=== PATIENT | female | born 2000 | race Two or more races ===

== ENCOUNTER 2025-08-23 22:59 | Inpatient (IN) | payer MEDICAID, OTHER ==
[~2025-08-23] VITALS: Ht 149.9 cm; Wt 105.6 kg
[2025-08-23 23:54] VITALS: PULSE 98; RESP 16; O2SAT 96
[2025-08-24] VITALS (12 sets, daily range): BP systolic 106–115; BP diastolic 68–83; PULSE 89–98; RESP 17–19; TEMP 97.6–98.5; O2SAT 90–100
[2025-08-24 00:14] LABS: Hematocrit 41.0 % (36.0-46.0); Hemoglobin 13.7 g/dL (12.2-16.2); Mean Corpuscular Hemoglobin 29.9 pg (28.0-32.0); Mean Corpuscular Volume 89.3 fL (80.0-100.0); Nucleated Red Blood Cells % 0.2 %
[2025-08-24] MEDS: IOHEXOL 300 MG/ML 100ML BOTTLE IJ ONE (00:21)
[2025-08-24 00:33] LABS: Alanine Aminotransferase 18 U/L (7-40); Albumin 4.3 g/dL (3.2-4.8); Alkaline Phosphatase 75 U/L (46-116); Anion Gap 11 (5-15); BUN/Creatinine Ratio 10.8 (10.0-20.0); Bilirubin, Total 0.3 mg/dL (0.2-1.0); Calcium 9.3 mg/dL (8.7-10.4); Carbon Dioxide 25 mmol/L (20-31); Chloride 104 mmol/L (98-107); Glucose 86 mg/dL (74-106); Lipase 30 U/L (12-53); Potassium 4.3 mmol/L (3.5-5.1); Sodium 140 mmol/L (136-145); Total Protein 7.8 g/dL (5.7-8.2)
[2025-08-24 00:34] LABS: Blood Urea Nitrogen 8 mg/dL (9-23)
[2025-08-24] MEDS: ONDANSETRON HCL 4 MG/2 ML VIAL IV ONE (01:04)
[2025-08-24] MEDS: KETOROLAC TROMETH 30 MG/ML 1ML VIAL IM ONE (01:05)
[2025-08-24] MEDS: SODIUM CHLORIDE 0.9% 1,000 ML IV ONE ×3 (01:05→10:49)
--- NOTE | 2025-08-24 01:15 | DVH ---
Exam: CT CT AB PEL WITH IV CON ONLY History: abd pain Comparison Study: None Technique: Multidetector spiral CT of the abdomen was performed from lung bases to pubic symphysis. I maging was performed with IV contrast. Axial, coronal and sagittal multiplanar reformats were obtaine d from the axial data set by the technologist. Radiation Dose : 1. Abdomen/Pelvis: CTDIvol 26.01 mGy, DLP 1482.8 mGy*cm. Findings: Evaluation of solid organs is limited due to lack of intravenous contrast use. Lower Chest: No acute findings. Liver: Diffuse hypoenhancement relative to the spleen. Gallbladder and Biliary Tree: Cholecystectomy change. Pancreas: Normal. Spleen: Normal. Adrenal Glands: Unremarkable. Kidneys/Ureters: No acute abnormality. Nonobstructing 2 mm stone in the right inferior collecting sys tem. Bladder: Grossly unremarkable for degree of distention. Pelvic Organs: Unremarkable Bowel: Normal caliber without wall thickening. No evidence of appendicitis. Vasculature: Unremarkable. Lymphadenopathy: No obvious adenopathy. Peritoneum: No ascites, free air, or fluid collection. Abdominal Wall: Fat containing supraumbilical and umbilical hernias. Mild stranding of internal augusto nts within the supraumbilical hernia. Musculoskeletal: No acute findings. Transitional lumbosacral anatomy. IMPRESSION: 1. Suggestion of mild fat incarceration within a supraumbilical hernia, correlate with symptoms and p hysical exam. 2. No other acute abdominopelvic abnormality. Nonobstructing right nephrolith. 3. Probable hepatic steatosis. Radiation optimization: All CT scans at this facility use at least one of these dose optimization saturnino hniques: automated exposure control mA and/or kV adjustment per patient size (includes targeted exam s where dose is matched to clinical indication) or iterative reconstruction.
--- NOTE | 2025-08-24 01:47 | ED.PDOC ---
GI ASSESSMENT HPI Comments Patient states she has been dealing with nausea and vomiting for the last 3-4 months. He states over the last three days her vomiting has become worse. States she has not been able to tolerate any food. She has been trying p.o. Zofran but she vomits. Says she has a history of abdominal wall hernia. States it was repaired in May but then the repair failed and since then she has been having these intermittent/recurrent episodes of cyclical vomiting. Patient reports 08/06 pain. She was told by her surgeon's office that she can not be seen until end of August. She was advised to come into the emergency department where Dr. Santos has privileges. She decided to come in to this emergency department. Chief Complaint: Nausea/Vomiting Time Seen by MD: 23:28 Reviewed Notes: Nurses Notes Allergies: Coded Allergies: Amoxicillin (Verified Allergy, Unknown, 08/23/25) Azithromycin (Verified Allergy, Unknown, 08/23/25) Dexamethasone (Verified Allergy, Unknown, 08/23/25) Diphenhydramine (Verified Allergy, Unknown, 08/23/25) Doxycycline (Verified Allergy, Unknown, 08/23/25) Gabapentin (Verified Allergy, Unknown, 08/23/25) Morphine (Verified Allergy, Unknown, 08/23/25) Oxycodone (Verified Allergy, Unknown, 08/23/25) Prochlorperazine (Verified Allergy, Unknown, 08/23/25) Information Source: Patient Mode of Arrival: Wheelchair Past Medical History Past Medical History (Other): Autism Surgical History (Other): Abdominal wall hernia Constitutional: denies: chills, diaphoresis, fatigue, fever, malaise, sweats, weakness, others EENTM: denies: blurred vision, double vision, ear bleeding, ear discharge, ear drainage, ear pain, ear ringing, eye pain, eye redness, hearing loss, mouth pain, mouth swelling, nasal discharge, nose bleeding, nose congestion, nose pain, photophobia, tearing, throat pain, throat swelling, voice changes, others Respiratory: denies: cough, hemoptysis, orthopnea, SOB at rest, shortness of breath, SOB with excertion, stridor, wheezing, others Cardiovascular: denies: chest pain, dizzy spells, diaphoresis, Dyspnea on exertion, edema, irregular heart beat, left arm pain, lightheadedness, palpitations, PND, syncope, others Gastrointestinal: reports: abdominal pain, nausea, vomiting; denies: abdomen distended, blood streaked bowels, constipated, diarrhea, dysphagia, difficulty swallowing, hematemesis, melena, poor appetite, poor fluid intake, rectal bleeding, rectal pain, others Genitourinary: denies: abnormal vagina bleeding, burning, dyspareunia, dysuria, flank pain, frequency, hematuria, incontinence, pain, , vagina discharge, urgency, others Neurological: denies: dizziness, fainting, headache, left sided numbness, left sided weakness, numbness, paresthesia, pre-existing deficit, right sided numbness, right sided weakness, seizure, speech problems, tingling, tremors, weakness, others Musculoskeletal: denies: back pain, gout, joint pain, joint swelling, muscle pain, muscle stiffness, neck pain, others Integumetry: denies: bruises, change in color, change in hair/nails, dryness, laceration, lesions, lumps, rash, wounds, others Physical Exam General Appearance: Moderate Distress, Normal HEENT: Normal ENT Inspection, Pharynx Normal, TMs Normal Neck: Full Range of Motion, Non-Tender, Normal, Normal Inspection Respiratory: Chest Non-Tender, Lungs Clear, No Accessory Muscle Use, No Respiratory Distress, Normal Breath Sounds Cardiovascular: No Edema, No JVD, No Murmur, No Gallop, Normal Peripheral Pulses, Regular Rate/Rhythm Breast Exam: Deferred Gastrointestinal: Diffuse (Diffuse upper abdomen tenderness), Distended, No Organomegaly, Normal Bowel Sounds, Soft Genitalia: Deferred Pelvic: Deferred Rectal: Deferred Extremities: No calf tenderness, Normal capillary refill, Normal inspection, Normal range of motion, Non-tender, No pedal edema Musculoskeletal : Apperance: Normal Neurologic: Alert, corsets salesperson II-XII nml as Tested, No Motor Deficits, Normal Affect, Normal Mood, No Sensory Deficits Cerebellar Function: Normal Reflexes: Normal Skin: Dry, Normal Color, Warm Lymphatic: No Adenopathy Was a procedure done? Was a procedure done?: No GI differential Dx Differential Diagnosis: Appendicitis, Gastritis/PUD, Gastroenteritis, Hernia, Hepatitis, Inflammatory BD X-Ray, Labs, Meds, VS Vital Signs Date Time Temp Pulse Resp B/P (MAP) Pulse Ox O2 Delivery O2 Flow Rate FiO2 08/23/25 23:54 98 16 96 Room Air* 0 21 08/23/25 23:53 98.2 98 16 135/89 (104) 96 98.2 08/23/25 23:02 98.8 103 18 120/91 97 98.8 Lab Test 08/24/25 00:01 Range/Units White Blood Count 8.0 4.4-10.8 10^3/uL Red Blood Count 4.59 4.0-5.20 10^6/uL Hemoglobin 13.7 12.2-16.2 g/dL Hematocrit 41.0 36.0-46.0 % Mean Corpuscular Volume 89.3 80.0-100.0 fL Mean Corpuscular Hemoglobin 29.9 28.0-32.0 pg Mean Corpuscular Hemoglobin Concent 33.5 32.0-36.0 g/dL Red Cell Distribution Width 14.1 11.8-14.3 % Platelet Count 266 140-450 10^3/uL Mean Platelet Volume 8.6 6.9-10.8 fL Neutrophils (%) (Auto) 61.0 37.0-80.0 % Lymphocytes (%) (Auto) 30.9 10.0-50.0 % Monocytes (%) (Auto) 6.2 0.0-12.0 % Eosinophils (%) (Auto) 1.4 0.0-7.0 % Basophils (%) (Auto) 0.5 0.0-2.0 % Neutrophils # (Auto) 4.9 1.6-8.6 10 ^3/uL Lymphocytes # (Auto) 2.5 0.4-5.4 10 ^3/uL Monocytes # (Auto) 0.5 0-1.3 10 ^3/uL Eosinophils # (Auto) 0.1 0-0.8 10 ^3/uL Basophils # (Auto) 0 0-0.2 10 ^3/uL Nucleated Red Blood Cells 0.2 % Sodium Level 140 136-145 mmol/L Potassium Level 4.3 3.5-5.1 mmol/L Chloride Level 104 98-107 mmol/L Carbon Dioxide Level 25 20-31 mmol/L Anion Gap 11 5-15 Blood Urea Nitrogen 8 L 9-23 mg/dL Creatinine 0.74 0.550-1.02 mg/dL Glomerular Filtration Rate Calc 114 >90 mL/min BUN/Creatinine Ratio 10.8 10.0-20.0 Serum Glucose 86 74-106 mg/dL Calcium Level 9.3 8.7-10.4 mg/dL Total Bilirubin 0.3 0.2-1.0 mg/dL Aspartate Amino Transferase (AST) 16 13-40 U/L Alanine Aminotransferase (ALT) 18 7-40 U/L Alkaline Phosphatase 75 46-116 U/L Total Protein 7.8 5.7-8.2 g/dL Albumin 4.3 3.2-4.8 g/dL Lipase 30 12-53 U/L Current Medications Medications (Trade) Dose Ordered Sig/Michele Route Start Time Stop Time Status Last Admin Ketorolac Tromethamine (Toradol Injection) 30 mg ONCE ONCE IM 08/24/25 00:00 08/24/25 00:01 DC 08/24/25 01:05 Sodium Chloride 1,000 ml @ 1,000 mls/hr Q1H ONCE IV 08/24/25 00:00 08/24/25 00:59 DC 08/24/25 01:05 Ondansetron HCl (Zofran) 4 mg ONCE ONCE IV 08/24/25 01:00 08/24/25 01:01 DC 08/24/25 01:04 X-Ray, Labs, Meds, VS Comment Patient will be admitted for intractable vomiting and abdominal pain Recommend general surgery consult in the morning Patient be given IV fluids and IV Zofran Patient was given 4 mg IV Zofran which had little effect, patient is still continued to vomit. Time of 1ST Reevaluation: 01:47 Reevaluation 1ST: Unchanged Patient Education/Counseling: Diagnosis, Treatment Family Education/Counseling: Diagnosis, Treatment SEPSIS Sepsis Screen Date sepsis recognized/suspect: Aug 23, 2025 Time Sepsis recognized/suspect: 2304 Recent Procedure: No On Antibiotic Therapy: No Respiratory Rate >20: No Heart Rate >90: No Temp<36 C (96.8 F) or >38.3 C: No SBP <90 or MAP <65 mmHG: No New Acute Mental Status Change: No Is the patient on CPAP, BIPAP,: No Physician Orders Urinalysis (08/23/25 23:50) Ct Ab Pel With Iv Con Only (08/23/25 23:50) Vital Signs Date Time Temp Pulse Resp B/P (MAP) Pulse Ox O2 Delivery O2 Flow Rate FiO2 08/23/25 23:54 98 16 96 Room Air* 0 21 08/23/25 23:53 98.2 98 16 135/89 (104) 96 98.2 08/23/25 23:02 98.8 103 18 120/91 97 98.8 Laboratory Tests Test 08/24/25 00:01 White Blood Count 8.0 10^3/uL (4.4-10.8) Medications Medications Dose Ordered Sig/Michele Route Start Time Stop Time Status Last Admin Dose Admin Ketorolac Tromethamine 30 mg ONCE ONCE IM 08/24/25 00:00 08/24/25 00:01 DC 08/24/25 01:05 Ondansetron HCl 4 mg ONCE ONCE IV 08/24/25 01:00 08/24/25 01:01 DC 08/24/25 01:04 Sodium Chloride 1,000 ml @ 1,000 mls/hr Q1H ONCE IV 08/24/25 00:00 08/24/25 00:59 DC 08/24/25 01:05 Departure 1 Departure Time of Disposition: 01:46 Impression: Primary Impression: Intractable vomiting Additional Impression: Abdominal wall hernia Disposition: ADMITTED INPATIENT Condition: Stable Discharged With: Self Critical Care Note Critical Care Time?: No Stability Stability form required: No Heart Score Heart Score: Heart Score Response (Comments) Value History N/A 0 EKG N/A 0 Age N/A 0 Risk Factors N/A 0 Troponin N/A 0 Total 0 ROMINA CURRY Aug 24, 2025 01:47
[2025-08-24] MEDS ORDERED: HYDROmorphone HCL 2 MG/ML VL/or syr IV PRN (02:30)
[2025-08-24] MEDS ORDERED: LORazepam 2MG/ML-1ML VIAL IV PRN (02:30)
[2025-08-24] MEDS ORDERED: KETOROLAC TROMETH 30 MG/ML 1ML VIAL IV PRN (02:30)
[2025-08-24 03:03] LABS: Urine Protein, UAD TRACE (Negative)
--- NOTE | 2025-08-24 03:04 | DVHHPRES ---
History of Present Illness Resident Creating Document: LB GARCIA RESIDENT History of Present Illness This is a 24-year-old female with a past medical history of Ignacia-Danlos, anxiety, depression, autism, asthma, recurrent abdominal hernias, fibromyalgia, scoliosis who was brought to the emergency room by her mother for nausea, vomiting, abdominal and flank pain. According to the patient she has been throwing up since May on and off but since the last 4 days 08/20/2025, the episodes of vomiting have increased and she is unable to tolerate any liquid or solids. Patient reports that she had a incarcerated, strangulated supraumbilical hernia repair in [place] on November. She also complains of coughing constantly which causes the abdominal pain. She rates the pain as 10/10 in intensity, burning and stabbing type, increased with movement, standing. She denies any shortness of breath, diarrhea, chest pain, recent sick contacts. She also complains of right-sided loin to groin pain, 10/10 in intensity, stabbing in nature associated with nausea and vomiting. Patient had gone to [place] and was told that she has renal stone in the lower pole measuring 3 mm and was given pain medication for it. On admission patient was likely tachycardic pulse 103, temperature 98.5, BP 115/83, SpO2 100% in room air. CT abdomen and pelvis shows suggestion of mild fat incarceration within a supraumbilical hernia and nonobstructing 2 mm stone in the right intrarenal collecting system. We are admitting the patient for further workup and management. Past medical history: As stated above, patient also states she takes control pills for excessive bleeding since the age of [age] years old Past surgical history: For hernia repairs of the abdomen, cholecystectomy, appendectomy, perforated eardrum Family history: Reviewed and noncontributory to the management of this case Medications at home: control pills Allergies: None PCP: Dr. Ngo from [facility] Code status: Full code Review of Systems Constitutional: No: Fever, Chills, Sweats, Weakness, Malaise, Other Eyes: No: Pain, Vision change, Conjunctivae inflammation, Eyelid inflammation, Other, Redness ENT: No: Ear pain, Ear discharge, Nose pain, Nose discharge, Nose congestion, Mouth pain, Mouth swelling, Throat pain, Throat swelling, Other Respiratory: Cough Cardiovascular: No: Chest Pain, Palpitations, Orthopnea, Paroxysmal Noc. Dyspnea, Edema, Lt Headedness, Other Gastrointestinal: Abdominal Pain Genitourinary: No Dysuria, No Frequency, No Incontinence, No Hematuria, No Retention, No Other Musculoskeletal: No: other, neck pain, shoulder pain, arm pain, back pain, hand pain, leg pain, foot pain Skin: No: Rash, Lesions, Jaundice, Bruising, Other Neurological: No: Weakness, Numbness, Incoordination, Change in speech, Confusion, Seizures, Other Allergies: Coded Allergies: Amoxicillin (Verified Allergy, Unknown, 08/23/25) Azithromycin (Verified Allergy, Unknown, 08/23/25) Dexamethasone (Verified Allergy, Unknown, 08/23/25) Diphenhydramine (Verified Allergy, Unknown, 08/23/25) Doxycycline (Verified Allergy, Unknown, 08/23/25) Gabapentin (Verified Allergy, Unknown, 08/23/25) Morphine (Verified Allergy, Unknown, 08/23/25) Oxycodone (Verified Allergy, Unknown, 08/23/25) Prochlorperazine (Verified Allergy, Unknown, 08/23/25) Medications Current Medications Medications Dose Ordered Sig/Michele Route Start Time Stop Time Status Last Admin Dose Admin Ondansetron HCl 4 mg Q4HP PRN IV 08/24/25 02:30 Enoxaparin Sodium 40 mg DAILY SC 08/24/25 02:30 UNV Tamsulosin HCl 0.4 mg QPM PO 08/24/25 18:00 Ketorolac Tromethamine 30 mg Q6HPRN PRN IV 08/24/25 02:30 08/29/25 02:29 Hydromorphone HCl 0.5 mg Q4HPRN PRN IV 08/24/25 02:30 UNV Lorazepam 0.5 mg Q12HP PRN IV 08/24/25 02:30 UNV Ceftriaxone Sodium 50 ml @ 100 mls/hr DAILY@09 IV 08/24/25 09:00 UNV Albuterol 2.5 mg Q6HPRN PRN NEB 08/24/25 02:30 UNV Exam Vital Signs Vital Signs Date Time Temp Pulse Resp B/P (MAP) Pulse Ox O2 Delivery O2 Flow Rate FiO2 08/24/25 01:47 98.5 94 16 115/83 (94) 100 98.5 08/23/25 23:54 Room Air* 0 21 Exam Pt is lying on bed General Appearance: Alert, Oriented X3, Cooperative, mildly acute distress HEENT: Atraumatic, Mucous membranes moist/pink Respiratory: Clear to auscultation, Normal air movement, No added sounds Cardiovascular: Regular rate, Normal S1, Normal S2, No murmurs Abdominal: Active bowel sounds, Soft, no distention, presence of palpable supraumbilical hernia on cough Extremities: No edema, Normal pulses, No tenderness/swelling Skin: No Significant rash, except past surgical scars Neuro: Normal speech, sensorimotor deficits none Psych/Mental Status: Mental status NL, Mood NL Nurse was there as printing press machinist during examination Labs/Xrays Labs Test 08/24/25 02:28 08/24/25 00:01 Range/Units White Blood Count 8.0 4.4-10.8 10^3/uL Red Blood Count 4.59 4.0-5.20 10^6/uL Hemoglobin 13.7 12.2-16.2 g/dL Hematocrit 41.0 36.0-46.0 % Mean Corpuscular Volume 89.3 80.0-100.0 fL Mean Corpuscular Hemoglobin 29.9 28.0-32.0 pg Mean Corpuscular Hemoglobin Concent 33.5 32.0-36.0 g/dL Red Cell Distribution Width 14.1 11.8-14.3 % Platelet Count 266 140-450 10^3/uL Mean Platelet Volume 8.6 6.9-10.8 fL Neutrophils (%) (Auto) 61.0 37.0-80.0 % Lymphocytes (%) (Auto) 30.9 10.0-50.0 % Monocytes (%) (Auto) 6.2 0.0-12.0 % Eosinophils (%) (Auto) 1.4 0.0-7.0 % Basophils (%) (Auto) 0.5 0.0-2.0 % Neutrophils # (Auto) 4.9 1.6-8.6 10 ^3/uL Lymphocytes # (Auto) 2.5 0.4-5.4 10 ^3/uL Monocytes # (Auto) 0.5 0-1.3 10 ^3/uL Eosinophils # (Auto) 0.1 0-0.8 10 ^3/uL Basophils # (Auto) 0 0-0.2 10 ^3/uL Nucleated Red Blood Cells 0.2 % Sodium Level 140 136-145 mmol/L Potassium Level 4.3 3.5-5.1 mmol/L Chloride Level 104 98-107 mmol/L Carbon Dioxide Level 25 20-31 mmol/L Anion Gap 11 5-15 Blood Urea Nitrogen 8 L 9-23 mg/dL Creatinine 0.74 0.550-1.02 mg/dL Glomerular Filtration Rate Calc 114 >90 mL/min BUN/Creatinine Ratio 10.8 10.0-20.0 Serum Glucose 86 74-106 mg/dL Calcium Level 9.3 8.7-10.4 mg/dL Total Bilirubin 0.3 0.2-1.0 mg/dL Aspartate Amino Transferase (AST) 16 13-40 U/L Alanine Aminotransferase (ALT) 18 7-40 U/L Alkaline Phosphatase 75 46-116 U/L Total Protein 7.8 5.7-8.2 g/dL Albumin 4.3 3.2-4.8 g/dL Lipase 30 12-53 U/L SEPSIS Sepsis Screen Date sepsis recognized/suspect: Aug 23, 2025 Time Sepsis recognized/suspect: 2304 Recent Procedure: No On Antibiotic Therapy: No Respiratory Rate >20: No Heart Rate >90: No Temp<36 C (96.8 F) or >38.3 C: No SBP <90 or MAP <65 mmHG: No New Acute Mental Status Change: No Is the patient on CPAP, BIPAP,: No Physician Orders Urinalysis (08/23/25 23:50) Ct Ab Pel With Iv Con Only (08/23/25 23:50) Admit (08/24/25 02:26) Code Status (08/24/25 02:26) Ondansetron Hcl (Zofran) (08/24/25 02:30) Npo (Nothing By Mouth) Diet (08/24/25 Breakfast) Enoxaparin Sodium (Lovenox) (08/24/25 10:00) Stat Ekg For Chest Pain (08/24/25 02:26) Notify Of Changes From Base (08/24/25 02:26) Tamsulosin Hydrochloride (Flomax) (08/24/25 18:00) Sodium Chloride 0.9% (08/24/25 02:30) * Surgical Consult (08/24/25 ) Ketorolac Injection (Toradol Injection) (08/24/25 02:30) Respiratory Culture W/ Gs (08/24/25 02:26) Covid19 Antigen Teodora (08/24/25 ) Rapid Influenza A&B (08/24/25 02:26) Chest Xray 1 View (08/24/25 02:26) Drug Screen (08/24/25 02:26) Type And Screen (08/24/25 02:26) Hydromorphone Injection (Dilaudid Inject (08/24/25 02:30) Lorazepam 2mg/Ml Inj (Ativan Inj) (08/24/25 02:30) Ceftriaxone 1gm/50ml (Rocephin) (08/24/25 21:00) Albuterol Medneb (Ventolin Medneb) (08/24/25 02:30) Vital Signs Date Time Temp Pulse Resp B/P (MAP) Pulse Ox O2 Delivery O2 Flow Rate FiO2 08/24/25 01:47 98.5 94 16 115/83 (94) 100 98.5 08/23/25 23:54 98 16 96 Room Air* 0 21 08/23/25 23:53 98.2 98 16 135/89 (104) 96 98.2 08/23/25 23:02 98.8 103 18 120/91 97 98.8 Laboratory Tests Test 08/24/25 00:01 White Blood Count 8.0 10^3/uL (4.4-10.8) Medications Medications Dose Ordered Sig/Michele Route Start Time Stop Time Status Last Admin Dose Admin Ketorolac Tromethamine 30 mg ONCE ONCE IM 08/24/25 00:00 08/24/25 00:01 DC 08/24/25 01:05 30 MG Ondansetron HCl 4 mg ONCE ONCE IV 08/24/25 01:00 08/24/25 01:01 DC 08/24/25 01:04 4 MG Sodium Chloride 1,000 ml @ 1,000 mls/hr Q1H ONCE IV 08/24/25 00:00 08/24/25 00:59 DC 08/24/25 01:05 1,000 MLS/HR Assessment/Plan Assessment/Plan #Incarcerated supraumbilical hernia - CT and abdomen pelvis shows: Suggestion of mild fat incarceration within a supraumbilical hernia, correlate with symptoms and physical exam. - Zofran 4 mg IV q.4 PRN - surgery consultation placed - Toradol 30 mg IV q.6 PRN - 0.5 mg Dilaudid q.4 PRN for severe pain - type and crossmatch - PT/INR - UDS negative - ceftriaxone 1 g IV daily - CXR- No acute cardiopulmonary abnormality #Right sided nephrolithiasis, nonobstructive -CT scan abdomen and pelvis shows Nonobstructing 2 mm stone in the right inferior collecting system - IV normal saline 1000 mL bolus - Flomax 0.4 mg daily #Probable hepatic steatosis. - shown on CT - monitor, outpatient follow up #history of anxiety disorder #history of depression - lorazepam 0.5 mg IV Q 12 PRN # history of asthma - med neb albuterol 2.5 mg q.6 PRN #Morbid obesity BMI 49.0 kg/M2 - patient was counseled regarding lifestyle modification, healthy diet and need of weight loss for over 8 minutes DVT prophylaxis: Lovenox 40 subcutaneous daily Diet: NPO Goals of care discussed with the patient for more than 27 minutes: Full code status Case discussed with , patient Plan discussed with: Patient My Orders Orders - LB GARCIA RESIDENT Procedure Category Date Status Time Admit ADMIT 08/24/25 Transmitted 02:26 Code Status CODE 08/24/25 Transmitted 02:26 Ondansetron Hcl PHA 08/24/25 In Process (Zofran) 02:30 Npo (Nothing By DIET 08/24/25 Transmitted Mouth) Diet Breakfast Enoxaparin Sodium PHA 08/24/25 In Process (Lovenox) 10:00 Stat Ekg For Chest CABRERA 08/24/25 In Process Pain 02:26 Notify Of Changes CABRERA 08/24/25 In Process From Base 02:26 Tamsulosin PHA 08/24/25 In Process Hydrochloride (Flomax) 18:00 Sodium Chloride 0.9% PHA 08/24/25 In Process 02:30 * Surgical Consult CONS 08/24/25 Transmitted Ketorolac Injection PHA 08/24/25 In Process (Toradol Injection) 02:30 Respiratory Culture JULIANA 08/24/25 Logged W/ Gs 02:26 Covid19 Antigen Te[facility]ora LAB 08/24/25 Logged Rapid Influenza A&B LAB 08/24/25 Logged 02:26 Chest Xray 1 View XY 08/24/25 Logged 02:26 Drug Screen LAB 08/24/25 In Process 02:26 Type And Screen BBK 08/24/25 Logged 02:26 Hydromorphone PHA 08/24/25 Logged Injection (Dilaudid 02:30 Lorazepam 2mg/Ml Inj PHA 08/24/25 In Process (Ativan Inj) 02:30 Ceftriaxone 1gm/50ml PHA 08/24/25 In Process (Rocephin) 21:00 Albuterol Medneb PHA 08/24/25 In Process (Ventolin Medneb) 02:30 Date of Service: Aug 24, 2025 Billing Provider: ANA M CURRAN MD Common Visit Codes: [id number] INP/OBS CARE (HIGH) Secondary Visit Codes: [id number] CARE PLAN 30 MINUTES LB GARCIA RESIDENT Aug 24, 2025 03:04
[2025-08-24 03:11] LABS: Cannabinoid Screen, Urine Neg (NEGATIVE); Phencyclidine Screen, Urine Neg (NEGATIVE)
[2025-08-24 03:12] LABS: Amphetamine Screen, Urine Neg (NEGATIVE); Barbiturate Scree,Urine Neg (NEGATIVE); Benzodiazephine Screen, Urine Neg (NEGATIVE); Cocaine Screen, Urine Neg (NEGATIVE); Opiate Scree,Urine Neg (NEGATIVE)
--- NOTE | 2025-08-24 03:24 | DVH ---
CHEST RADIOGRAPH Indication: sob Technique: 1 view Comparison: None FINDINGS: Soft tissue attenuation and beam underpenetration limits assessment. Lines and Tubes: None. Lungs/Pleura: No focal consolidation, pleural effusion or pneumothorax. Cardiomediastinum: Unremarkable. Other: No acute osseous abnormality. IMPRESSION: 1. No acute cardiopulmonary abnormality.
[2025-08-24 04:07] LABS: COVID19 ANTIGEN SOFIA FIA NEGATIVE (NEGATIVE)
[2025-08-24] MEDS: ALBUTEROL SULF 2.5 MG/0.5ML(0.5%) NEB SOLN NEB PRN (06:25)
[2025-08-24] MEDS: ONDANSETRON HCL 4 MG/2 ML VIAL IV PRN (06:35)
[2025-08-24] MEDS: ENOXAPARIN SOD 40 MG/0.4 ML SYRINGE SC SCH (10:00)
[2025-08-24] MEDS: PANTOPRAZOLE 40 MG/10 ML VIAL INJ IV SCH (10:48)
[2025-08-24 11:15] LABS: Magnesium 1.8 mg/dL (1.6-2.6)
--- NOTE | 2025-08-24 11:30 | DVHINCON2 ---
Date of service: Aug 24, 2025 Family History: Anxiety disorder G8 MOTHER Arthritis G8 MOTHER Asthma G8 MOTHER Depression G8 MOTHER Diabetes mellitus G8 MOTHER G8 FATHER GERD G8 MOTHER Hypercholesterolemia G8 MOTHER Allergies: Coded Allergies: Amoxicillin (Verified Allergy, Unknown, 08/23/25) Azithromycin (Verified Allergy, Unknown, 08/23/25) Dexamethasone (Verified Allergy, Unknown, 08/23/25) Diphenhydramine (Verified Allergy, Unknown, 08/23/25) Doxycycline (Verified Allergy, Unknown, 08/23/25) Gabapentin (Verified Allergy, Unknown, 08/23/25) Morphine (Verified Allergy, Unknown, 08/23/25) Oxycodone (Verified Allergy, Unknown, 08/23/25) Prochlorperazine (Verified Allergy, Unknown, 08/23/25) Current Medications Current Medications Medications (Trade) Dose Ordered Sig/Michele Route PRN Reason Start Time Stop Time Status Last Admin Ondansetron HCl (Zofran) 4 mg Q4HP PRN IV NAUSEA / VOMITING 08/24/25 02:30 08/24/25 10:54 Enoxaparin Sodium (Lovenox) 40 mg DAILY SC 08/24/25 10:00 Tamsulosin HCl (Flomax) 0.4 mg QPM PO 08/24/25 18:00 Ketorolac Tromethamine (Toradol Injection) 30 mg Q6HPRN PRN IV MODERATE PAIN (4-6 PAIN SCALE) 08/24/25 02:30 08/24/25 09:28 DC Hydromorphone HCl (Dilaudid Injection) 0.5 mg Q4HPRN PRN IV SEVERE PAIN (7-10 PAIN SCALE) 08/24/25 02:30 Lorazepam (Ativan Inj) 0.5 mg Q12HP PRN IV ANXIETY 08/24/25 02:30 Ceftriaxone Sodium 50 ml @ 100 mls/hr Q24H IV 08/24/25 21:00 Albuterol (Ventolin Medneb) 2.5 mg Q6HPRN PRN NEB SHORTNESS OF BREATH 08/24/25 02:30 08/24/25 06:25 Pantoprazole Sodium (Protonix) 40 mg DAILY IV 08/24/25 10:00 08/24/25 10:48 Ketorolac Tromethamine (Toradol Injection) 15 mg Q6HPRN PRN IV MODERATE PAIN (4-6 PAIN SCALE) 08/24/25 10:54 08/29/25 10:53 Patient Own Medication 1 DAILY PO 08/24/25 13:00 Vital Signs Vital Signs Date Time Temp Pulse Resp B/P (MAP) Pulse Ox O2 Delivery O2 Flow Rate FiO2 08/24/25 09:00 97.8 98 18 115/68 (84) 99 97.8 08/24/25 06:25 Room Air 08/24/25 06:25 0 21 Labs/Diagnostic Data Labs Test 08/24/25 10:30 08/24/25 02:49 08/24/25 02:28 08/24/25 00:01 Range/Units Lactic Acid Level 1.3 0.4-2.0 mmol/L Phosphorus Level 3.5 2.4-5.1 mg/dL Magnesium Level 1.8 1.6-2.6 mg/dL Beta HCG, Quantitative 0.4 L 1.5-4.2 mIU/mL Influenza Type A Antigen Negative Negative Influenza Type B Antigen Negative Negative SARS-CoV-2 Antigen (Rapid) Negative NEGATIVE Urine Color Light-yellow Yellow Urine Clarity Clear Clear Urine pH 7.0 5.0-9.0 Urine Specific [place] > 1.050 H 1.001-1.035 Urine Protein Trace H Negative Urine Ketones Negative Negative Urine Blood Negative Negative /uL Urine Nitrite Negative Negative Urine Bilirubin Negative Negative Urine Urobilinogen Normal Negative mg/dL Urine Leukocyte Esterase Negative Negative /uL Urine RBC None seen 0 - 4 /hpf Urine Microscopic WBC 5 0-5 /HPF Urine Squamous Epithelial Cells Few <5 /hpf Urine Bacteria None seen None Seen /hpf Urine Glucose Normal Normal mg/dL Urine Opiates Screen Neg NEGATIVE Urine Fentanyl Screen Neg NEGATIVE Urine Barbiturates Screen Neg NEGATIVE Urine Phencyclidine Screen Neg NEGATIVE Urine Amphetamines Screen Neg NEGATIVE Urine Benzodiazepines Screen Neg NEGATIVE Urine Cocaine Screen Neg NEGATIVE Urine Cannabinoids Screen Neg NEGATIVE White Blood Count 8.0 4.4-10.8 10^3/uL Red Blood Count 4.59 4.0-5.20 10^6/uL Hemoglobin 13.7 12.2-16.2 g/dL Hematocrit 41.0 36.0-46.0 % Mean Corpuscular Volume 89.3 80.0-100.0 fL Mean Corpuscular Hemoglobin 29.9 28.0-32.0 pg Mean Corpuscular Hemoglobin Concent 33.5 32.0-36.0 g/dL Red Cell Distribution Width 14.1 11.8-14.3 % Platelet Count 266 140-450 10^3/uL Mean Platelet Volume 8.6 6.9-10.8 fL Neutrophils (%) (Auto) 61.0 37.0-80.0 % Lymphocytes (%) (Auto) 30.9 10.0-50.0 % Monocytes (%) (Auto) 6.2 0.0-12.0 % Eosinophils (%) (Auto) 1.4 0.0-7.0 % Basophils (%) (Auto) 0.5 0.0-2.0 % Neutrophils # (Auto) 4.9 1.6-8.6 10 ^3/uL Lymphocytes # (Auto) 2.5 0.4-5.4 10 ^3/uL Monocytes # (Auto) 0.5 0-1.3 10 ^3/uL Eosinophils # (Auto) 0.1 0-0.8 10 ^3/uL Basophils # (Auto) 0 0-0.2 10 ^3/uL Nucleated Red Blood Cells 0.2 % Sodium Level 140 136-145 mmol/L Potassium Level 4.3 3.5-5.1 mmol/L Chloride Level 104 98-107 mmol/L Carbon Dioxide Level 25 20-31 mmol/L Anion Gap 11 5-15 Blood Urea Nitrogen 8 L 9-23 mg/dL Creatinine 0.74 0.550-1.02 mg/dL Glomerular Filtration Rate Calc 114 >90 mL/min BUN/Creatinine Ratio 10.8 10.0-20.0 Serum Glucose 86 74-106 mg/dL Calcium Level 9.3 8.7-10.4 mg/dL Total Bilirubin 0.3 0.2-1.0 mg/dL Aspartate Amino Transferase (AST) 16 13-40 U/L Alanine Aminotransferase (ALT) 18 7-40 U/L Alkaline Phosphatase 75 46-116 U/L Total Protein 7.8 5.7-8.2 g/dL Albumin 4.3 3.2-4.8 g/dL Lipase 30 12-53 U/L Assessment did not examine patient: RN informed me that is being consulted, recall if needed Plan discussed with: Other HECTOR ALVARADO MD Aug 24, 2025 11:29
[2025-08-24] MEDS: KETOROLAC TROMETH 30 MG/ML 1ML VIAL IV PRN (11:53)
--- NOTE | 2025-08-24 12:16 | DVH ---
INDICATION: Rule out radioopaque renal stone. TECHNIQUE: Multiple real-time sonographic images of the kidneys and bladder were obtained. COMPARISON: None FINDINGS: RIGHT kidney measures 9.9 cm in length. No hydronephrosis. LEFT kidney measures 10.5 cm in length. No hydronephrosis. No large intraluminal masses are seen in the bladder. Prevoid bladder volume 41 mL. Mendez catheter in the bladder Bilateral ureteral jets visualized. IMPRESSION: 1. 9.9 cm long right kidney. 10.5 cm long left kidney. 2. No hydronephrosis bilaterally. 3. Mendez catheter in the bladder and bladder contains 41 mL of urine.
--- NOTE | 2025-08-24 13:27 | ECG ---
[facility] Test Date: 2025-08-24 Test Time: 10:45:10 Pat Name: MARIA A LU Department: Respiratoy Room: 0206 A Gender: F [employer] Information Clerk: NACHO : 2000 Requested By: MARYBETH MARIN Order Number: [id number] Reading MD: Que Santoyo Measurements Intervals [place] Rate: 89 P: 29 [place]: 156 QRS: 31 QRSD: 76 T: 0 QT: 368 QTc: 448 Interpretive Statements Sinus rhythm Baseline wander in lead(s) V3 Electronically Signed On 08-31-2025 12:47:28 PST by Que Santoyo Please click the below link to view image of tracing.
--- NOTE | 2025-08-24 15:00 | DVHPNRES ---
Progress Note Date Seen: Aug 24, 2025 Resident Creating Document: NICOLE GORMAN RESIDENT Medical Necessity Reason Pt with a Central, PICC or Fol: No Subjective Review of Systems This is a 24-year-old female with a past medical history of focal seizures, Ignacia-Danlos, anxiety, depression, autism, asthma, recurrent abdominal hernias, fibromyalgia, scoliosis who was brought to the emergency room by her mother for nausea, vomiting, abdominal and flank pain. According to the patient she has been throwing up since May on and off but since the last 4 days 08/20/2025, the episodes of vomiting have increased and she is unable to tolerate any liquid or solids. Patient reports that she had a incarcerated, strangulated supraumbilical hernia repair in [place] on November. She also complains of coughing constantly which causes the abdominal pain. She rates the pain as 10/10 in intensity, burning and stabbing type, increased with movement, standing. She denies any shortness of breath, diarrhea, chest pain, recent sick contacts. She also complains of right-sided loin to groin pain, 10/10 in intensity, stabbing in nature associated with nausea and vomiting. Patient had gone to [place] and was told that she has renal stone in the lower pole measuring 3 mm and was given pain medication for it. On admission patient was likely tachycardic pulse 103, temperature 98.5, BP 115/83, SpO2 100% in room air. Past medical history: As stated above Past surgical history: For hernia repairs of the abdomen, cholecystectomy, appendectomy, perforated eardrum Family history: noncontributory Medications at home: control pills Allergies: None PCP: Dr. Ngo Code status: Full code Constitutional: No: Fever, Chills, Sweats, Weakness, Malaise, Other Eyes: No: Pain, Vision change, Conjunctivae inflammation, Eyelid inflammation, Other, Redness ENT: No: Ear pain, Ear discharge, Nose pain, Nose discharge, Nose congestion, Mouth pain, Mouth swelling, Throat pain, Throat swelling, Other Respiratory: Cough Cardiovascular: No: Chest Pain, Palpitations, Orthopnea, Paroxysmal Noc. Dyspnea, Edema, Lt Headedness, Other Gastrointestinal: Abdominal Pain Genitourinary: No Dysuria, No Frequency, No Incontinence, No Hematuria, No Retention, No Other Musculoskeletal: No: other, neck pain, shoulder pain, arm pain, back pain, hand pain, leg pain, foot pain Skin: No: Rash, Lesions, Jaundice, Bruising, Other Neurological: No: Weakness, Numbness, Incoordination, Change in speech, Confusion, Seizures, Other Objective vital signs Vital Sign Date Time Temp Pulse Resp B/P (MAP) Pulse Ox O2 Delivery O2 Flow Rate FiO2 08/24/25 12:38 98.2 91 18 109/75 (86) 98 98.2 08/24/25 08:00 Room Air* 0 21 medications Current Medications Medications Dose Ordered Sig/Michele Route Start Time Stop Time Status Last Admin Dose Admin Ondansetron HCl 4 mg Q4HP PRN IV 08/24/25 02:30 08/24/25 10:54 4 MG Enoxaparin Sodium 40 mg DAILY SC 08/24/25 10:00 Tamsulosin HCl 0.4 mg QPM PO 08/24/25 18:00 Hydromorphone HCl 0.5 mg Q4HPRN PRN IV 08/24/25 02:30 Lorazepam 0.5 mg Q12HP PRN IV 08/24/25 02:30 Ceftriaxone Sodium 50 ml @ 100 mls/hr Q24H IV 08/24/25 21:00 Albuterol 2.5 mg Q6HPRN PRN NEB 08/24/25 02:30 08/24/25 06:25 2.5 MG Pantoprazole Sodium 40 mg DAILY IV 08/24/25 10:00 08/24/25 10:48 40 MG Ketorolac Tromethamine 15 mg Q6HPRN PRN IV 08/24/25 10:54 08/29/25 10:53 08/24/25 11:53 15 MG Patient Own Medication 1 DAILY PO 08/24/25 13:00 08/24/25 13:04 1 Throat Lozenges 1 estelita Q6HPRN PRN MT 08/24/25 13:15 Guaifenesin/ Dextromethorphan 10 ml Q6HPRN PRN PO 08/24/25 13:30 Examination General Appearance: Alert, Oriented X3, Cooperative, mildly acute distress HEENT: Atraumatic, Mucous membranes moist/pink Respiratory: Clear to auscultation, Normal air movement, No added sounds Cardiovascular: Regular rate, Normal S1, Normal S2, No murmurs Abdominal: Active bowel sounds, Soft, no distention, presence of palpable supraumbilical hernia on cough, tenderness in the right hypochondrial, lumbar, iliac region and epigastric, umbilical and hypogastric regions Extremities: No edema, Normal pulses, No tenderness/swelling Skin: No Significant rash, except past surgical scars Neuro: Normal speech, sensorimotor deficits none Psych/Mental Status: Mental status NL, Mood NL Nurse was there as human resources team member during examination laboratory and microbiology Laboratory Tests 08/24/25 00:01 Test 08/24/25 00:01 Range/Units Serum Glucose 86 74-106 mg/dL Problem List/Assessment/Plan Problem List/Assessment/Plan Assessment/Plan # Incarcerated supraumbilical hernia - CT and abdomen pelvis shows: Suggestion of mild fat incarceration within a supraumbilical hernia, correlate with symptoms and physical exam. - Zofran 4 mg IV q.4 PRN - surgery consultation placed, family wants Dr. Santos to do the surgery. Informed the doctor. - Toradol 30 mg IV q.6 PRN - 0.5 mg Dilaudid q.4 PRN for severe pain - type and crossmatch - PT/INR - UDS negative - ceftriaxone 1 g IV daily - CXR- No acute cardiopulmonary abnormality # Right sided nephrolithiasis, nonobstructive -CT scan abdomen and pelvis shows Nonobstructing 2 mm stone in the right inferior collecting system - IV normal saline 1000 mL bolus - Flomax 0.4 mg daily # Probable hepatic steatosis. - shown on CT - monitor, outpatient follow up # history of anxiety disorder # history of depression - lorazepam 0.5 mg IV Q 12 PRN # history of asthma - med neb albuterol 2.5 mg q.6 PRN # Morbid obesity BMI 49.0 kg/M2 - patient was counseled regarding lifestyle modification, healthy diet and need of weight loss for over 8 minutes DVT prophylaxis: Lovenox 40 subcutaneous daily Diet: NPO Goals of care discussed with the patient for more than 27 minutes: Full code status Case discussed with , patient Plan discussed with: Patient My Orders My Orders Orders - NICOLE GORMAN RESIDENT Procedure Category Date Status Time Throat Lozenges PHA 08/24/25 In Process (Cepastat Lozenges) 13:15 Guaifenesin-Dextromet PHA 08/24/25 In Process Liquid (Robitussin 13:30 Date of Service: Aug 24, 2025 Billing Provider: CYRUS WESLEY MD Common Visit Codes: [id number] INP/OBS CARE(HIGH) NICOLE GORMAN RESIDENT Aug 24, 2025 15:00 CYRUS WESLEY MD Aug 30, 2025 20:12
[2025-08-24] MEDS: THROAT LOZENGES(CEPASTAT) MT PRN (16:45)
[2025-08-24] MEDS: TAMSULOSIN HYDROCHLORIDE 0.4 MG CAP PO SCH (17:53)
[2025-08-24 19:15] LABS: INR 1.02 (0.9-1.15); Partial Thromboplastin Time 30.6 SEC (24.5-34.5); Prothrombin Time 10.8 sec (9.3-11.8)
[2025-08-24] MEDS: guaiFENesin-DM 100/10mg/5ml SYR PO PRN (19:58)
[2025-08-25] VITALS (12 sets, daily range): BP systolic 104–119; BP diastolic 62–92; PULSE 75–128; RESP 15–18; TEMP 96.2–98.6; O2SAT 91–100
[2025-08-25 07:03] LABS: Hematocrit 36.1 % (36.0-46.0); Hemoglobin 12.4 g/dL (12.2-16.2); Mean Corpuscular Hemoglobin 30.8 pg (28.0-32.0); Mean Corpuscular Volume 89.5 fL (80.0-100.0); Nucleated Red Blood Cells % 0.1 %
[2025-08-25 07:20] LABS: Alanine Aminotransferase 14 U/L (7-40); Albumin 3.8 g/dL (3.2-4.8); Alkaline Phosphatase 69 U/L (46-116); Anion Gap 12 (5-15); BUN/Creatinine Ratio 7.8 (10.0-20.0); Bilirubin, Total 0.4 mg/dL (0.2-1.0); Carbon Dioxide 25 mmol/L (20-31); Chloride 105 mmol/L (98-107); Glucose 89 mg/dL (74-106); Potassium 3.8 mmol/L (3.5-5.1); Sodium 142 mmol/L (136-145); Total Protein 7.0 g/dL (5.7-8.2)
[2025-08-25 07:21] LABS: Blood Urea Nitrogen 6 mg/dL (9-23); Calcium 8.3 mg/dL (8.7-10.4)
--- NOTE | 2025-08-25 09:57 | DVHPN2 ---
Progress Note Date Seen: Aug 25, 2025 Medical Necessity Reason Pt with a Central, PICC or Fol: No Objective vital signs Vital Sign Date Time Temp Pulse Resp B/P (MAP) Pulse Ox O2 Delivery O2 Flow Rate FiO2 08/25/25 08:38 97.2 75 15 110/66 (81) 98 97.2 08/24/25 23:04 Room Air* 0 21 Total Intake and Output 08/24/25 08/24/25 08/25/25 15:00 23:00 07:00 Intake Total 750 ml 0 ml Balance 750 ml 0 ml medications Current Medications Medications Dose Ordered Sig/Michele Route Start Time Stop Time Status Last Admin Dose Admin Ondansetron HCl 4 mg Q4HP PRN IV 08/24/25 02:30 08/24/25 16:46 4 MG Enoxaparin Sodium 40 mg DAILY SC 08/24/25 10:00 Tamsulosin HCl 0.4 mg QPM PO 08/24/25 18:00 Hydromorphone HCl 0.5 mg Q4HPRN PRN IV 08/24/25 02:30 Lorazepam 0.5 mg Q12HP PRN IV 08/24/25 02:30 Ceftriaxone Sodium 50 ml @ 100 mls/hr Q24H IV 08/24/25 21:00 08/24/25 21:01 100 MLS/HR Albuterol 2.5 mg Q6HPRN PRN NEB 08/24/25 02:30 08/24/25 06:25 2.5 MG Pantoprazole Sodium 40 mg DAILY IV 08/24/25 10:00 08/24/25 10:48 40 MG Ketorolac Tromethamine 15 mg Q6HPRN PRN IV 08/24/25 10:54 08/29/25 10:53 08/25/25 04:44 15 MG Patient Own Medication 1 DAILY PO 08/24/25 13:00 08/24/25 13:04 1 Throat Lozenges 1 lacie Q6HPRN PRN MT 08/24/25 13:15 08/25/25 04:44 1 LACIE Guaifenesin/ Dextromethorphan 10 ml Q6HPRN PRN PO 08/24/25 13:30 08/24/25 19:58 10 ML laboratory and microbiology Laboratory Tests 08/25/25 05:50 Test 08/25/25 05:50 Range/Units Serum Glucose 89 74-106 mg/dL Problem List/Assessment/Plan Problem List/Assessment/Plan 08/25/25i was re consulted and examined and interviewed patient accompanied by her mothre. patient had multiple operartions (laparoscopic appendectomy, laparoscopic cholecystectomy and several abdominal hernia repairs. she is morbidly obese and has a tender visible, palpable mass in the supra umbilical abdominal wall. incarcere\ated hernia repair with or without mesh, risks and complications explained in detail, all questions answered to her satisfaction. Plan discussed with: Patient, Other HECTOR ALVARADO MD Aug 25, 2025 09:57
[2025-08-25] MEDS ORDERED: fentaNYL CITRATE 100 MCG/2 ML VL ONE (10:01)
[2025-08-25] MEDS ORDERED: SUCCINYLCHOLINE CHLORIDE 20 MG/ML 10ML VIAL IV ONE (10:01)
[2025-08-25] MEDS ORDERED: PROPOFOL 10 MG/ML 20 ML IV ONE (10:02)
[2025-08-25] MEDS ORDERED: HYDROmorphone HCL 2 MG/ML VL/or syr ONE (10:03)
[2025-08-25] MEDS: BUPIVACAINE HCL 0.25% P/F 10 ML VIAL ONE (10:30)
[2025-08-25] MEDS ORDERED: ROCURONIUM 10MG/ML 10ML VIAL IV ONE (10:30)
[2025-08-25] MEDS: LIDOCAINE 1%-Mpf/Epinephrine 1:200,000 30ml VIAL ONE (10:30)
[2025-08-25] MEDS ORDERED: ONDANSETRON HCL 4 MG/2 ML VIAL ONE (10:40)
[2025-08-25] MEDS: ceFAZolin 1GM VL ONE (10:40)
[2025-08-25] MEDS ORDERED: HYDROmorphone HCL 2 MG/ML VL/or syr IV PRN ×2 (11:15→11:45)
[2025-08-25] MEDS: ACETAMINOPHEN IV 1000 MG/100ML (10MG/ML) IV PRN (11:40)
[2025-08-25] MEDS ORDERED: ACETAMINOPHEN IV 100 ML IV ONE (11:44)
[2025-08-25] MEDS ORDERED: MIDAZOLAM HCL 2MG/2ML 2ml VIAL (1mg/ml) IV PRN (11:45)
[2025-08-25] MEDS: ONDANSETRON HCL 4 MG/2 ML VIAL IV PRN ×2 (11:50→17:56)
[2025-08-25] MEDS: D5W/SOD CHL 0.45%/KCL 20MEQ 1,000 ML IV SCH (13:37)
--- NOTE | 2025-08-25 13:57 | DVHPNRES ---
Progress Note Date Seen: Aug 25, 2025 Resident Creating Document: NICOLE GORMAN RESIDENT Medical Necessity Reason Pt with a Central, PICC or Fol: No Subjective Review of Systems Patient seen at bedside. Patient is being scheduled to do surgery today by Dr. Adkins This is a 24-year-old female with a past medical history of focal seizures, Ignacia-Danlos, anxiety, depression, autism, asthma, recurrent abdominal hernias, fibromyalgia, scoliosis who was brought to the emergency room by her mother for nausea, vomiting, abdominal and flank pain. According to the patient she has been throwing up since May on and off but since the last 4 days 08/20/2025, the episodes of vomiting have increased and she is unable to tolerate any liquid or solids. Patient reports that she had a incarcerated, strangulated supraumbilical hernia repair in [place] on November. She also complains of coughing constantly which causes the abdominal pain. She rates the pain as 10/10 in intensity, burning and stabbing type, increased with movement, standing. She denies any shortness of breath, diarrhea, chest pain, recent sick contacts. She also complains of right-sided loin to groin pain, 10/10 in intensity, stabbing in nature associated with nausea and vomiting. Patient had gone to [place] and was told that she has renal stone in the lower pole measuring 3 mm and was given pain medication for it. On admission patient was likely tachycardic pulse 103, temperature 98.5, BP 115/83, SpO2 100% in room air. Past medical history: As stated above Past surgical history: For hernia repairs of the abdomen, cholecystectomy, appendectomy, perforated eardrum Family history: noncontributory Medications at home: control pills Allergies: None PCP: Dr. Ngo Code status: Full code Constitutional: No: Fever, Chills, Sweats, Weakness, Malaise, Other Eyes: No: Pain, Vision change, Conjunctivae inflammation, Eyelid inflammation, Other, Redness ENT: No: Ear pain, Ear discharge, Nose pain, Nose discharge, Nose congestion, Mouth pain, Mouth swelling, Throat pain, Throat swelling, Other Respiratory: Cough Cardiovascular: No: Chest Pain, Palpitations, Orthopnea, Paroxysmal Noc. Dyspnea, Edema, Lt Headedness, Other Gastrointestinal: Abdominal Pain Genitourinary: No Dysuria, No Frequency, No Incontinence, No Hematuria, No Retention, No Other Musculoskeletal: No: other, neck pain, shoulder pain, arm pain, back pain, hand pain, leg pain, foot pain Skin: No: Rash, Lesions, Jaundice, Bruising, Other Neurological: No: Weakness, Numbness, Incoordination, Change in speech, Confusion, Seizures, Other Objective vital signs Vital Sign Date Time Temp Pulse Resp B/P (MAP) Pulse Ox O2 Delivery O2 Flow Rate FiO2 08/25/25 11:55 113 12 132/87 (102) 99 08/25/25 11:34 Room Air 0 96 08/25/25 11:25 98.1 98.1 Total Intake and Output 08/24/25 08/24/25 08/25/25 15:00 23:00 07:00 Intake Total 750 ml 0 ml Balance 750 ml 0 ml medications Current Medications Medications Dose Ordered Sig/Michele Route Start Time Stop Time Status Last Admin Dose Admin Enoxaparin Sodium 40 mg DAILY SC 08/24/25 10:00 Tamsulosin HCl 0.4 mg QPM PO 08/24/25 18:00 Lorazepam 0.5 mg Q12HP PRN IV 08/24/25 02:30 Ceftriaxone Sodium 50 ml @ 100 mls/hr Q24H IV 08/24/25 21:00 08/24/25 21:01 100 MLS/HR Albuterol 2.5 mg Q6HPRN PRN NEB 08/24/25 02:30 08/24/25 06:25 2.5 MG Pantoprazole Sodium 40 mg DAILY IV 08/24/25 10:00 08/24/25 10:48 40 MG Ketorolac Tromethamine 15 mg Q6HPRN PRN IV 08/24/25 10:54 08/29/25 10:53 08/25/25 04:44 15 MG Patient Own Medication 1 DAILY PO 08/24/25 13:00 08/24/25 13:04 1 Throat Lozenges 1 lacie Q6HPRN PRN MT 08/24/25 13:15 08/25/25 04:44 1 LACIE Guaifenesin/ Dextromethorphan 10 ml Q6HPRN PRN PO 08/24/25 13:30 08/24/25 19:58 10 ML Potassium Chloride/Dextrose/ Sod Cl 1,000 ml @ 120 mls/hr Q8H20M IV 08/25/25 11:15 08/25/25 13:37 120 MLS/HR Hydromorphone HCl 1 mg Q3HPRN PRN IV 08/25/25 11:15 Ondansetron HCl 4 mg Q4HPRN PRN IV 08/25/25 11:15 Examination General Appearance: Alert, Oriented X3, Cooperative, mildly acute distress HEENT: Atraumatic, Mucous membranes moist/pink Respiratory: Clear to auscultation, Normal air movement, No added sounds Cardiovascular: Regular rate, Normal S1, Normal S2, No murmurs Abdominal: Active bowel sounds, Soft, no distention, presence of palpable supraumbilical hernia on cough, tenderness in the right hypochondrial, lumbar, iliac region and epigastric, umbilical and hypogastric regions Extremities: No edema, Normal pulses, No tenderness/swelling Skin: No Significant rash, except past surgical scars Neuro: Normal speech, sensorimotor deficits none Psych/Mental Status: Mental status NL, Mood NL laboratory and microbiology Laboratory Tests 08/25/25 05:50 Test 08/25/25 05:50 Range/Units Serum Glucose 89 74-106 mg/dL Problem List/Assessment/Plan Problem List/Assessment/Plan Assessment/Plan # Incarcerated supraumbilical hernia - CT and abdomen pelvis shows: Suggestion of mild fat incarceration within a supraumbilical hernia, correlate with symptoms and physical exam. - Zofran 4 mg IV q.4 PRN - surgery consultation placed, family wants Dr. Strickland to do the surgery. Surgery scheduled for today by Dr. Adkins since Dr. strickland is not available - Toradol 30 mg IV q.6 PRN - 0.5 mg Dilaudid q.4 PRN for severe pain - type and crossmatch - PT/INR - UDS negative - ceftriaxone 1 g IV daily - CXR- No acute cardiopulmonary abnormality # Right sided nephrolithiasis, nonobstructive -CT scan abdomen and pelvis shows Nonobstructing 2 mm stone in the right inferior collecting system - IV normal saline 1000 mL bolus - Flomax 0.4 mg daily # Probable hepatic steatosis. - shown on CT - monitor, outpatient follow up # history of anxiety disorder # history of depression - lorazepam 0.5 mg IV Q 12 PRN # history of asthma - med neb albuterol 2.5 mg q.6 PRN #history of autism follow up with PCP after discharge # history of ehler danlos follow up with PCP after discharge # Morbid obesity BMI 49.0 kg/M2 - patient was counseled regarding lifestyle modification, healthy diet and need of weight loss for over 8 minutes DVT prophylaxis: Lovenox 40 subcutaneous daily Diet: NPO Goals of care discussed with the patient for more than 27 minutes: Full code status Case discussed with , patient Plan discussed with: Patient My Orders My Orders Orders - NICOLE GORMAN RESIDENT Procedure Category Date Status Time * Surgical Consult CONS 08/24/25 Transmitted Date of Service: Aug 25, 2025 Billing Provider: CYRUS WESLYE MD Common Visit Codes: [id number] INP/OBS CARE(HIGH) NICOLE GORMAN RESIDENT Aug 25, 2025 13:57 CYRUS WESLEY MD Aug 30, 2025 20:13
[2025-08-25] MEDS ORDERED: LORazepam 2MG/ML-1ML VIAL IV PRN ×2 (16:45→17:45)
--- NOTE | 2025-08-25 17:29 | DVH ---
CHEST RADIOGRAPH Indication: rule out aspiration Technique: XY CHEST PORTABLE COMPARISON: None FINDINGS: The cardiac silhouette is enlarged. The lungs demonstrate bilateral patchy airspace opacities. The pu lmonary vasculature is prominent. Small bilateral pleural effusions. There is no pneumothorax. IMPRESSION: Cardiomegaly with pulmonary vascular congestion and bilateral patchy airspace opacities. Small bilateral pleural effusions.
[2025-08-25 18:44] LABS: Hematocrit 37.2 % (36.0-46.0); Hemoglobin 12.6 g/dL (12.2-16.2)
[2025-08-26] VITALS (12 sets, daily range): BP systolic 100–126; BP diastolic 48–79; PULSE 75–108; RESP 16–20; TEMP 97.2–99.1; O2SAT 95–100
[2025-08-26] MEDS ORDERED: ACETAMINOPHEN 325 MG TAB PO PRN (10:00)
[2025-08-26 10:44] LABS: Hematocrit 38.5 % (36.0-46.0); Hemoglobin 12.8 g/dL (12.2-16.2); Mean Corpuscular Hemoglobin 29.8 pg (28.0-32.0); Mean Corpuscular Volume 89.4 fL (80.0-100.0); Nucleated Red Blood Cells % 0.0 %
[2025-08-26 10:56] LABS: Alanine Aminotransferase 17 U/L (7-40); Alkaline Phosphatase 70 U/L (46-116); Anion Gap 8 (5-15); Carbon Dioxide 25 mmol/L (20-31); Potassium 4.2 mmol/L (3.5-5.1); Sodium 141 mmol/L (136-145); Total Protein 7.3 g/dL (5.7-8.2)
[2025-08-26 10:57] LABS: Albumin 4.1 g/dL (3.2-4.8); Bilirubin, Total 0.5 mg/dL (0.2-1.0)
[2025-08-26 10:59] LABS: BUN/Creatinine Ratio 6.8 (10.0-20.0); Blood Urea Nitrogen < 5 mg/dL (9-23); Calcium 8.6 mg/dL (8.7-10.4); Chloride 108 mmol/L (98-107); Glucose 116 mg/dL (74-106)
--- NOTE | 2025-08-26 12:10 | DVH ---
CT HEAD WITHOUT CONTRAST INDICATION: seizure EXAM DATE: 08/26/2025 11:22 AM COMPARISON: None RADIATION DOSE: CTDIvol: 70.05 mGy, DLP: 1520.07 mGy*cm PROCEDURE: CT scans of the head were obtained from the vertex to the skull base. Sagittal and coronal reconstructions were provided. All CT scans at this medical facility are performed using dose modulation techniques as appropriate t o a performed exam including the following: Automated exposure control was utilized; adjustment of th e MA and/or KV according to patient size; and use of iterative reconstruction technique. FINDINGS: There is sulcal and ventricular prominence. The brainshows normal morphology and wilkins-whi te matter differentiation, without intracranial hemorrhage, extra-axial fluid collection, mass effect or acute large vessel infarct. The ventricles are normal in size. The basal cisterns are patent. The skull and visible facial bones are intact. The paranasal sinuses, mastoid air cells and middle ear c avities are well-aerated. The soft tissues of the scalp are unremarkable. IMPRESSION: No acute intracranial abnormality.
[2025-08-27] VITALS (9 sets, daily range): BP systolic 103–126; BP diastolic 69–85; PULSE 85–115; RESP 17–19; TEMP 36.9; O2SAT 95–100
[2025-08-27 07:32] LABS: Alanine Aminotransferase 13 U/L (7-40); Alkaline Phosphatase 66 U/L (46-116); Anion Gap 10 (5-15); Carbon Dioxide 24 mmol/L (20-31); Potassium 4.0 mmol/L (3.5-5.1); Sodium 142 mmol/L (136-145); Total Protein 6.8 g/dL (5.7-8.2)
[2025-08-27 07:33] LABS: Albumin 3.8 g/dL (3.2-4.8); Bilirubin, Total 0.3 mg/dL (0.2-1.0)
[2025-08-27 07:43] LABS: BUN/Creatinine Ratio 6.7 (10.0-20.0); Blood Urea Nitrogen < 5 mg/dL (9-23); Calcium 8.3 mg/dL (8.7-10.4); Chloride 108 mmol/L (98-107); Glucose 115 mg/dL (74-106)
--- NOTE | 2025-08-27 11:06 | DVHPN2 ---
Subjective Date Seen: Aug 26, 2025 Post op day Post op day: 1 Nursing reports: No new complaints General: Normal HNT: Normal Cardiovascular: Normal Respiratory: Normal Gastrointestinal: Normal Genitourinary: Normal Musculoskeletal: Normal Neurological: Normal Objective Vitals Vital Sign Date Time Temp Pulse Resp B/P (MAP) Pulse Ox O2 Delivery O2 Flow Rate FiO2 08/26/25 08:29 97.8 75 18 100/48 (65) 98 97.8 08/26/25 07:40 Nasal Cannula* 1 24 Total Intake and Output 08/25/25 08/25/25 08/26/25 15:00 23:00 07:00 Intake Total 200 ml 600 ml 0 ml Balance 200 ml 600 ml 0 ml Medications Current Medications Medications Dose Ordered Sig/Michele Route Start Time Stop Time Status Last Admin Dose Admin Enoxaparin Sodium 40 mg DAILY SC 08/24/25 10:00 Tamsulosin HCl 0.4 mg QPM PO 08/24/25 18:00 Lorazepam 0.5 mg Q12HP PRN IV 08/24/25 02:30 Ceftriaxone Sodium 50 ml @ 100 mls/hr Q24H IV 08/24/25 21:00 08/25/25 20:28 100 MLS/HR Albuterol 2.5 mg Q6HPRN PRN NEB 08/24/25 02:30 08/26/25 07:40 2.5 MG Pantoprazole Sodium 40 mg DAILY IV 08/24/25 10:00 08/26/25 09:41 40 MG Ketorolac Tromethamine 15 mg Q6HPRN PRN IV 08/24/25 10:54 08/29/25 10:53 08/26/25 04:54 15 MG Patient Own Medication 1 DAILY PO 08/24/25 13:00 08/25/25 14:28 1 Throat Lozenges 1 lacie Q6HPRN PRN MT 08/24/25 13:15 08/25/25 04:44 1 LACIE Guaifenesin/ Dextromethorphan 10 ml Q6HPRN PRN PO 08/24/25 13:30 08/24/25 19:58 10 ML Potassium Chloride/Dextrose/ Sod Cl 1,000 ml @ 120 mls/hr Q8H20M IV 08/25/25 11:15 08/25/25 23:37 120 MLS/HR Hydromorphone HCl 1 mg Q3HPRN PRN IV 08/25/25 11:15 Ondansetron HCl 4 mg Q4HPRN PRN IV 08/25/25 11:15 08/26/25 00:57 4 MG Lorazepam 1 mg Q5MINP PRN IV 08/25/25 17:45 Acetaminophen 650 mg Q6HP PRN PO 08/26/25 10:00 UNV General: Normal, Obese Head/Eyes: Normal ENT: Normal Neck: Normal Abdominal: Soft, Other (appropaitely tedner around opsite ) Labs and Microbiology Laboratory Tests 08/25/25 18:26 08/25/25 05:50 Test 08/25/25 05:50 Range/Units Serum Glucose 89 74-106 mg/dL Ass/Plan Problem List Assessment/Plan # Incarcerated supraumbilical hernia - CT and abdomen pelvis shows: Suggestion of mild fat incarceration within a supraumbilical hernia, correlate with symptoms and physical exam. - Zofran 4 mg IV q.4 PRN - surgery consultation placed, family wants Dr. Strickland to do the surgery. Surgery scheduled for today by Dr. Adkins since Dr. strickland is not available - Toradol 30 mg IV q.6 PRN - 0.5 mg Dilaudid q.4 PRN for severe pain - type and crossmatch - PT/INR - UDS negative - ceftriaxone 1 g IV daily - CXR- No acute cardiopulmonary abnormality # Right sided nephrolithiasis, nonobstructive -CT scan abdomen and pelvis shows Nonobstructing 2 mm stone in the right inferior collecting system - IV normal saline 1000 mL bolus - Flomax 0.4 mg daily # Probable hepatic steatosis. - shown on CT - monitor, outpatient follow up # history of anxiety disorder # history of depression - lorazepam 0.5 mg IV Q 12 PRN # history of asthma - med neb albuterol 2.5 mg q.6 PRN #history of autism follow up with PCP after discharge # history of ehler danlos follow up with PCP after discharge # Morbid obesity BMI 49.0 kg/M2 - patient was counseled regarding lifestyle modification, healthy diet and need of weight loss for over 8 minutes DVT prophylaxis: Lovenox 40 subcutaneous daily Diet: NPO Goals of care discussed with the patient for more than 27 minutes: Full code status Case discussed with Dr.Midou, patient Assessment/Plan - Reports feeling "so-so" this morning post-operatively. - Expressed hunger and a desire to eat, stating they have not eaten in approximately three days, since Saturday. - Reports having had an episode of diarrhea this morning. - Reports passing gas. - Expressed a desire to go home if unable to eat. Assessment: - Post-operative check. Surgical wound appears to be healing well. Abdominal binder is in place. Plan: - Recommendations and counselling: Advised that eating or drinking while nauseous could induce vomiting, which uses abdominal muscles and could potentially compromise the surgical repair. Advised to get up and walk around the nurse's station to promote recovery. Recommended use of the abdominal binder to provide support, especially in the event of coughing. ice chips initially to moisten the mouth and will re-evaluate for tomorrow. Emphasized the importance of safety Prognosis: Good Plan discussed with patient, Dr. Adkins Visit Coding Surgery Date of Service if different f: Aug 26, 2025 Billing Provider: HECTOR ADKINS MD Surgery Visit Codes: [id number] INP/OBS CARE(HIGH) JAYLA GIORDANO NP Aug 26, 2025 09:59
--- NOTE | 2025-08-27 11:11 | DVHPNRES ---
Progress Note Date Seen: Aug 26, 2025 Resident Creating Document: NICOLE GORMAN Medical Necessity Reason Pt with a Central, PICC or Fol: No Subjective Review of Systems Patient seen at bedside in the morning. No further seizures. Patient requests to break NPO and advance diet. Surgery recommendation is to continue NPO for the time being due to risk of vomiting and surgical repair compromise. This is a 24-year-old female with a past medical history of focal seizures, Ignacia-Danlos, anxiety, depression, autism, asthma, recurrent abdominal hernias, fibromyalgia, scoliosis who was brought to the emergency room by her mother for nausea, vomiting, abdominal and flank pain. According to the patient she has been throwing up since May on and off but since the last 4 days 08/20/2025, the episodes of vomiting have increased and she is unable to tolerate any liquid or solids. Patient reports that she had a incarcerated, strangulated supraumbilical hernia repair in [place] on November. She also complains of coughing constantly which causes the abdominal pain. She rates the pain as 10/10 in intensity, burning and stabbing type, increased with movement, standing. She denies any shortness of breath, diarrhea, chest pain, recent sick contacts. She also complains of right-sided loin to groin pain, 10/10 in intensity, stabbing in nature associated with nausea and vomiting. Patient had gone to [place] and was told that she has renal stone in the lower pole measuring 3 mm and was given pain medication for it. On admission patient was likely tachycardic pulse 103, temperature 98.5, BP 115/83, SpO2 100% in room air. Past medical history: As stated above Past surgical history: For hernia repairs of the abdomen, cholecystectomy, appendectomy, perforated eardrum Family history: noncontributory Medications at home: control pills Allergies: None PCP: Dr. Ngo Code status: Full code Constitutional: No: Fever, Chills, Sweats, Weakness, Malaise, Other Eyes: No: Pain, Vision change, Conjunctivae inflammation, Eyelid inflammation, Other, Redness ENT: No: Ear pain, Ear discharge, Nose pain, Nose discharge, Nose congestion, Mouth pain, Mouth swelling, Throat pain, Throat swelling, Other Respiratory: Cough Cardiovascular: No: Chest Pain, Palpitations, Orthopnea, Paroxysmal Noc. Dyspnea, Edema, Lt Headedness, Other Gastrointestinal: Abdominal Pain Genitourinary: No Dysuria, No Frequency, No Incontinence, No Hematuria, No Retention, No Other Musculoskeletal: No: other, neck pain, shoulder pain, arm pain, back pain, hand pain, leg pain, foot pain Skin: No: Rash, Lesions, Jaundice, Bruising, Other Neurological: No: Weakness, Numbness, Incoordination, Change in speech, Confusion, Seizures, Other Objective vital signs Vital Sign Date Time Temp Pulse Resp B/P (MAP) Pulse Ox O2 Delivery O2 Flow Rate FiO2 08/26/25 08:29 97.8 75 18 100/48 (65) 98 97.8 08/26/25 08:00 Room Air* 0 21 Total Intake and Output 08/25/25 08/25/25 08/26/25 15:00 23:00 07:00 Intake Total 200 ml 600 ml 0 ml Balance 200 ml 600 ml 0 ml medications Current Medications Medications Dose Ordered Sig/Michele Route Start Time Stop Time Status Last Admin Dose Admin Enoxaparin Sodium 40 mg DAILY SC 08/24/25 10:00 Tamsulosin HCl 0.4 mg QPM PO 08/24/25 18:00 Lorazepam 0.5 mg Q12HP PRN IV 08/24/25 02:30 Ceftriaxone Sodium 50 ml @ 100 mls/hr Q24H IV 08/24/25 21:00 08/25/25 20:28 100 MLS/HR Albuterol 2.5 mg Q6HPRN PRN NEB 08/24/25 02:30 08/26/25 07:40 2.5 MG Pantoprazole Sodium 40 mg DAILY IV 08/24/25 10:00 08/26/25 09:41 40 MG Ketorolac Tromethamine 15 mg Q6HPRN PRN IV 08/24/25 10:54 08/29/25 10:53 08/26/25 04:54 15 MG Patient Own Medication 1 DAILY PO 08/24/25 13:00 08/25/25 14:28 1 Throat Lozenges 1 lacie Q6HPRN PRN MT 08/24/25 13:15 08/25/25 04:44 1 LACIE Guaifenesin/ Dextromethorphan 10 ml Q6HPRN PRN PO 08/24/25 13:30 08/24/25 19:58 10 ML Potassium Chloride/Dextrose/ Sod Cl 1,000 ml @ 120 mls/hr Q8H20M IV 08/25/25 11:15 08/25/25 23:37 120 MLS/HR Hydromorphone HCl 1 mg Q3HPRN PRN IV 08/25/25 11:15 Ondansetron HCl 4 mg Q4HPRN PRN IV 08/25/25 11:15 08/26/25 00:57 4 MG Lorazepam 1 mg Q5MINP PRN IV 08/25/25 17:45 Acetaminophen 650 mg Q6HP PRN PO 08/26/25 10:00 Examination General Appearance: Alert, Oriented X3, Cooperative, mildly acute distress HEENT: Atraumatic, Mucous membranes moist/pink Respiratory: Clear to auscultation, Normal air movement, No added sounds Cardiovascular: Regular rate, Normal S1, Normal S2, No murmurs Abdominal: Diffuse abdominal tenderness present, abdominal binder on Extremities: No edema, Normal pulses, No tenderness/swelling Skin: No Significant rash, except past surgical scars Neuro: Normal speech, sensorimotor deficits none Psych/Mental Status: Mental status NL, Mood NL laboratory and microbiology Laboratory Tests 08/26/25 10:14 Test 08/26/25 10:14 Range/Units Serum Glucose 116 H 74-106 mg/dL Problem List/Assessment/Plan Problem List/Assessment/Plan Assessment/Plan # Incarcerated supraumbilical hernia - CT and abdomen pelvis shows: Suggestion of mild fat incarceration within a supraumbilical hernia, correlate with symptoms and physical exam. - Zofran 4 mg IV q.4 PRN - surgery consultation placed, family wants Dr. Strickland to do the surgery. Surgery scheduled for today by Dr. Adkins since Dr. strickland is not available - Toradol 30 mg IV q.6 PRN - 0.5 mg Dilaudid q.4 PRN for severe pain - type and crossmatch - PT/INR - UDS negative - ceftriaxone 1 g IV daily - CXR- No acute cardiopulmonary abnormality # Right sided nephrolithiasis, nonobstructive -CT scan abdomen and pelvis shows Nonobstructing 2 mm stone in the right inferior collecting system - IV normal saline 1000 mL bolus - Flomax 0.4 mg daily # Probable hepatic steatosis. - shown on CT - monitor, outpatient follow up # history of anxiety disorder # history of depression - lorazepam 0.5 mg IV Q 12 PRN # history of asthma - med neb albuterol 2.5 mg q.6 PRN #history of autism follow up with PCP after discharge # history of ehler danlos follow up with PCP after discharge # Morbid obesity BMI 49.0 kg/M2 - patient was counseled regarding lifestyle modification, healthy diet and need of weight loss for over 8 minutes DVT prophylaxis: Lovenox 40 subcutaneous daily Diet: NPO Goals of care discussed with the patient for more than 27 minutes: Full code status Case discussed with , patient Plan discussed with: Patient My Orders My Orders Orders - NICOLE GORMAN Procedure Category Date Status Time Head Without Contrast CT 08/26/25 Resulted 10:22 Date of Service: Aug 26, 2025 Billing Provider: CYRUS WESLEY MD Common Visit Codes: [id number] INP/OBS CARE(HIGH) NICOLE GORMAN RESIDENT Aug 26, 2025 12:50 CYRUS WESLEY MD Aug 30, 2025 20:13
--- NOTE | 2025-08-27 11:15 | DVHPN2 ---
Subjective Date Seen: Aug 26, 2025 Post op day Post op day: 1 Nursing reports: No new complaints General: Normal HNT: Normal Cardiovascular: Normal Respiratory: Normal Gastrointestinal: Normal Genitourinary: Normal Musculoskeletal: Normal Neurological: Normal Objective Vitals Vital Sign Date Time Temp Pulse Resp B/P (MAP) Pulse Ox O2 Delivery O2 Flow Rate FiO2 08/26/25 08:29 97.8 75 18 100/48 (65) 98 97.8 08/26/25 08:00 Room Air* 0 21 Total Intake and Output 08/25/25 08/25/25 08/26/25 15:00 23:00 07:00 Intake Total 200 ml 600 ml 0 ml Balance 200 ml 600 ml 0 ml Medications Current Medications Medications Dose Ordered Sig/Michele Route Start Time Stop Time Status Last Admin Dose Admin Enoxaparin Sodium 40 mg DAILY SC 08/24/25 10:00 Tamsulosin HCl 0.4 mg QPM PO 08/24/25 18:00 Lorazepam 0.5 mg Q12HP PRN IV 08/24/25 02:30 Ceftriaxone Sodium 50 ml @ 100 mls/hr Q24H IV 08/24/25 21:00 08/25/25 20:28 100 MLS/HR Albuterol 2.5 mg Q6HPRN PRN NEB 08/24/25 02:30 08/26/25 07:40 2.5 MG Pantoprazole Sodium 40 mg DAILY IV 08/24/25 10:00 08/26/25 09:41 40 MG Ketorolac Tromethamine 15 mg Q6HPRN PRN IV 08/24/25 10:54 08/29/25 10:53 08/26/25 13:12 15 MG Patient Own Medication 1 DAILY PO 08/24/25 13:00 08/26/25 10:00 1 Throat Lozenges 1 lacie Q6HPRN PRN MT 08/24/25 13:15 08/26/25 13:20 1 LACIE Guaifenesin/ Dextromethorphan 10 ml Q6HPRN PRN PO 08/24/25 13:30 08/24/25 19:58 10 ML Potassium Chloride/Dextrose/ Sod Cl 1,000 ml @ 120 mls/hr Q8H20M IV 08/25/25 11:15 08/26/25 12:15 120 MLS/HR Hydromorphone HCl 1 mg Q3HPRN PRN IV 08/25/25 11:15 Ondansetron HCl 4 mg Q4HPRN PRN IV 08/25/25 11:15 08/26/25 00:57 4 MG Lorazepam 1 mg Q5MINP PRN IV 08/25/25 17:45 Acetaminophen 650 mg Q6HP PRN PO 08/26/25 10:00 General: Normal, Obese Head/Eyes: Normal ENT: Normal Neck: Normal Abdominal: Soft, Other (appropaitely tedner around opsite ) Labs and Microbiology Laboratory Tests 08/26/25 10:14 Test 08/26/25 10:14 Range/Units Serum Glucose 116 H 74-106 mg/dL Ass/Plan Problem List Assessment/Plan # Incarcerated supraumbilical hernia - CT and abdomen pelvis shows: Suggestion of mild fat incarceration within a supraumbilical hernia, correlate with symptoms and physical exam. - Zofran 4 mg IV q.4 PRN - surgery consultation placed, family wants Dr. Strickland to do the surgery. Surgery scheduled for today by Dr. Adkins since Dr. strickland is not available - Toradol 30 mg IV q.6 PRN - 0.5 mg Dilaudid q.4 PRN for severe pain - type and crossmatch - PT/INR - UDS negative - ceftriaxone 1 g IV daily - CXR- No acute cardiopulmonary abnormality # Right sided nephrolithiasis, nonobstructive -CT scan abdomen and pelvis shows Nonobstructing 2 mm stone in the right inferior collecting system - IV normal saline 1000 mL bolus - Flomax 0.4 mg daily # Probable hepatic steatosis. - shown on CT - monitor, outpatient follow up # history of anxiety disorder # history of depression - lorazepam 0.5 mg IV Q 12 PRN # history of asthma - med neb albuterol 2.5 mg q.6 PRN #history of autism follow up with PCP after discharge # history of ehler danlos follow up with PCP after discharge # Morbid obesity BMI 49.0 kg/M2 - patient was counseled regarding lifestyle modification, healthy diet and need of weight loss for over 8 minutes DVT prophylaxis: Lovenox 40 subcutaneous daily Diet: NPO Goals of care discussed with the patient for more than 27 minutes: Full code status Case discussed with , patient Assessment/Plan - Reports feeling "so-so" this morning post-operatively. - Expressed hunger and a desire to eat, stating they have not eaten in approximately three days, since Saturday. - Reports having had an episode of diarrhea this morning. - Reports passing gas. - Expressed a desire to go home if unable to eat. Assessment: - Post-operative check. Surgical wound appears to be healing well. Abdominal binder is in place. Plan: - Recommendations and counselling: Advised that eating or drinking while nauseous could induce vomiting, which uses abdominal muscles and could potentially compromise the surgical repair. Advised to get up and walk around the nurse's station to promote recovery. Recommended use of the abdominal binder to provide support, especially in the event of coughing. ice chips initially to moisten the mouth and will re-evaluate for tomorrow. Emphasized the importance of safety 08/26/2025 Presenting Issues: - Mother requested feeding for Patient, citing no PO intake since Saturday. - Patient reported nausea until approximately 04:00 today; asymptomatic for several hours since per Patient/nurse. - Concern for aspiration risk and potential compromise of surgical repair if diet advanced prematurely. - Provided phone counseling to mother on aspiration risk and safety of withholding food. - Clarified diet orders: allow clear liquids when asymptomatic; discontinue and make NPO if nausea/vomiting occurs. - Coordinated with bedside nurse to reinforce and implement the plan. Treatment Plan: - Continue clear liquids while Patient remains free of nausea. - If nausea or emesis recurs, stop clear liquids and place Patient NPO. - Maintain inpatient safety with emphasis on aspiration prevention and protection of the hernia repair. Prognosis: Good Plan discussed with patients mother and nurse Visit Coding Surgery Date of Service if different f: Aug 26, 2025 Billing Provider: HECTOR ADKINS MD Surgery Visit Codes: [id number] INP/OBS CARE(HIGH) JAYLA GIORDANO NP Aug 26, 2025 14:37
--- NOTE | 2025-08-27 12:03 | DVHPN2 ---
Subjective Date Seen: Aug 27, 2025 Post op day Post op day: 2 Nursing reports: No new complaints General: Normal HNT: Normal Cardiovascular: Normal Respiratory: Normal Gastrointestinal: Normal Genitourinary: Normal Musculoskeletal: Normal Neurological: Normal Objective Vitals Vital Sign Date Time Temp Pulse Resp B/P (MAP) Pulse Ox O2 Delivery O2 Flow Rate FiO2 08/27/25 09:30 88 19 100 08/27/25 09:23 Nasal Cannula* 1 24 08/27/25 08:18 98.3 114/76 (89) 98.3 Total Intake and Output 08/26/25 08/26/25 08/27/25 15:00 23:00 07:00 Intake Total 1950 ml 600 ml Balance 1950 ml 600 ml Medications Current Medications Medications Dose Ordered Sig/Michele Route Start Time Stop Time Status Last Admin Dose Admin Enoxaparin Sodium 40 mg DAILY SC 08/24/25 10:00 Tamsulosin HCl 0.4 mg QPM PO 08/24/25 18:00 Lorazepam 0.5 mg Q12HP PRN IV 08/24/25 02:30 Ceftriaxone Sodium 50 ml @ 100 mls/hr Q24H IV 08/24/25 21:00 08/26/25 20:22 100 MLS/HR Albuterol 2.5 mg Q6HPRN PRN NEB 08/24/25 02:30 08/27/25 09:23 2.5 MG Pantoprazole Sodium 40 mg DAILY IV 08/24/25 10:00 08/27/25 08:53 40 MG Ketorolac Tromethamine 15 mg Q6HPRN PRN IV 08/24/25 10:54 08/29/25 10:53 08/27/25 01:37 15 MG Patient Own Medication 1 DAILY PO 08/24/25 13:00 08/26/25 10:00 1 Throat Lozenges 1 lacie Q6HPRN PRN MT 08/24/25 13:15 08/27/25 09:04 1 LACIE Guaifenesin/ Dextromethorphan 10 ml Q6HPRN PRN PO 08/24/25 13:30 08/27/25 08:53 10 ML Potassium Chloride/Dextrose/ Sod Cl 1,000 ml @ 120 mls/hr Q8H20M IV 08/25/25 11:15 08/26/25 12:15 120 MLS/HR Hydromorphone HCl 1 mg Q3HPRN PRN IV 08/25/25 11:15 Ondansetron HCl 4 mg Q4HPRN PRN IV 08/25/25 11:15 08/27/25 01:37 4 MG Lorazepam 1 mg Q5MINP PRN IV 08/25/25 17:45 Acetaminophen 650 mg Q6HP PRN PO 08/26/25 10:00 General: Normal, Obese Head/Eyes: Normal ENT: Normal Neck: Normal Abdominal: Soft, Other (appropaitely tedner around opsite ) Labs and Microbiology Laboratory Tests 08/27/25 04:34 08/26/25 10:14 Test 08/27/25 04:34 Range/Units Serum Glucose 115 H 74-106 mg/dL Ass/Plan Problem List Assessment/Plan # Incarcerated supraumbilical hernia - CT and abdomen pelvis shows: Suggestion of mild fat incarceration within a supraumbilical hernia, correlate with symptoms and physical exam. - Zofran 4 mg IV q.4 PRN - surgery consultation placed, family wants Dr. Strickland to do the surgery. Surgery scheduled for today by Dr. Adkins since Dr. strickland is not available - Toradol 30 mg IV q.6 PRN - 0.5 mg Dilaudid q.4 PRN for severe pain - type and crossmatch - PT/INR - UDS negative - ceftriaxone 1 g IV daily - CXR- No acute cardiopulmonary abnormality # Right sided nephrolithiasis, nonobstructive -CT scan abdomen and pelvis shows Nonobstructing 2 mm stone in the right inferior collecting system - IV normal saline 1000 mL bolus - Flomax 0.4 mg daily # Probable hepatic steatosis. - shown on CT - monitor, outpatient follow up # history of anxiety disorder # history of depression - lorazepam 0.5 mg IV Q 12 PRN # history of asthma - med neb albuterol 2.5 mg q.6 PRN #history of autism follow up with PCP after discharge # history of ehler danlos follow up with PCP after discharge # Morbid obesity BMI 49.0 kg/M2 - patient was counseled regarding lifestyle modification, healthy diet and need of weight loss for over 8 minutes DVT prophylaxis: Lovenox 40 subcutaneous daily Diet: NPO Goals of care discussed with the patient for more than 27 minutes: Full code status Case discussed with , patient Assessment/Plan - Reports feeling "so-so" this morning post-operatively. - Expressed hunger and a desire to eat, stating they have not eaten in approximately three days, since Saturday. - Reports having had an episode of diarrhea this morning. - Reports passing gas. - Expressed a desire to go home if unable to eat. Assessment: - Post-operative check. Surgical wound appears to be healing well. Abdominal binder is in place. Plan: - Recommendations and counselling: Advised that eating or drinking while nauseous could induce vomiting, which uses abdominal muscles and could potentially compromise the surgical repair. Advised to get up and walk around the nurse's station to promote recovery. Recommended use of the abdominal binder to provide support, especially in the event of coughing. ice chips initially to moisten the mouth and will re-evaluate for tomorrow. Emphasized the importance of safety 08/26/2025 Presenting Issues: - Mother requested feeding for Patient, citing no PO intake since Saturday. - Patient reported nausea until approximately 04:00 today; asymptomatic for several hours since per Patient/nurse. - Concern for aspiration risk and potential compromise of surgical repair if diet advanced prematurely. - Provided phone counseling to mother on aspiration risk and safety of withholding food. - Clarified diet orders: allow clear liquids when asymptomatic; discontinue and make NPO if nausea/vomiting occurs. - Coordinated with bedside nurse to reinforce and implement the plan. Treatment Plan: - Continue clear liquids while Patient remains free of nausea. - If nausea or emesis recurs, stop clear liquids and place Patient NPO. - Maintain inpatient safety with emphasis on aspiration prevention and protection of the hernia repair. 08/27/25 wound clear dry and intact feeling better today bowel activity, passing gas, BM tolerating diet, advance diet as tolerated patient may shower patient to follow up in surgery clinic in 10-14 days no heavy lifting wear abdominal binder continuously until further notice Prognosis: Good Plan discussed with patient, Dr. Adkins Visit Coding Surgery Date of Service if different f: Aug 27, 2025 Billing Provider: HECTOR ADKINS MD Surgery Visit Codes: [id number] INP/OBS CARE(HIGH) JAYLA GIORDANO NP Aug 27, 2025 12:02
--- NOTE | 2025-08-27 15:38 | DVHDSRES ---
Discharge Summary Date of Admission Resident Creating Document: NICOLE GORMAN RESIDENT Aug 24, 2025 at 02:26 Date of Discharge: Aug 27, 2025 Labs/Diagnostic Data: Laboratory Results Test 08/27/25 04:34 08/26/25 10:14 08/25/25 18:26 08/24/25 18:11 Sodium Level 142 mmol/L (136-145) Potassium Level 4.0 mmol/L (3.5-5.1) Chloride Level 108 mmol/L (98-107) Carbon Dioxide Level 24 mmol/L (20-31) Anion Gap 10 (5-15) Blood Urea Nitrogen < 5 mg/dL (9-23) Creatinine 0.75 mg/dL (0.550-1.02) Glomerular Filtration Rate Calc 113 mL/min (>90) BUN/Creatinine Ratio 6.7 (10.0-20.0) Serum Glucose 115 mg/dL (74-106) Calcium Level 8.3 mg/dL (8.7-10.4) Total Bilirubin 0.3 mg/dL (0.2-1.0) Aspartate Amino Transferase (AST) 16 U/L (13-40) Alanine Aminotransferase (ALT) 13 U/L (7-40) Alkaline Phosphatase 66 U/L (46-116) Creatine Kinase 212 U/L (34-145) Total Protein 6.8 g/dL (5.7-8.2) Albumin 3.8 g/dL (3.2-4.8) White Blood Count 7.8 10^3/uL (4.4-10.8) Red Blood Count 4.31 10^6/uL (4.0-5.20) Hemoglobin 12.8 g/dL (12.2-16.2) Hematocrit 38.5 % (36.0-46.0) Mean Corpuscular Volume 89.4 fL (80.0-100.0) Mean Corpuscular Hemoglobin 29.8 pg (28.0-32.0) Mean Corpuscular Hemoglobin Concent 33.4 g/dL (32.0-36.0) Red Cell Distribution Width 13.8 % (11.8-14.3) Platelet Count 229 10^3/uL (140-450) Mean Platelet Volume 8.9 fL (6.9-10.8) Neutrophils (%) (Auto) 68.9 % (37.0-80.0) Lymphocytes (%) (Auto) 21.5 % (10.0-50.0) Monocytes (%) (Auto) 6.5 % (0.0-12.0) Eosinophils (%) (Auto) 2.9 % (0.0-7.0) Basophils (%) (Auto) 0.2 % (0.0-2.0) Neutrophils # (Auto) 5.3 10 ^3/uL (1.6-8.6) Lymphocytes # (Auto) 1.7 10 ^3/uL (0.4-5.4) Monocytes # (Auto) 0.5 10 ^3/uL (0-1.3) Eosinophils # (Auto) 0.2 10 ^3/uL (0-0.8) Basophils # (Auto) 0 10 ^3/uL (0-0.2) Nucleated Red Blood Cells 0.0 % Magnesium Level 1.8 mg/dL (1.6-2.6) Lactic Acid Level 1.1 mmol/L (0.4-2.0) Prolactin 13.37 ng/mL (2.8-29.2) Prothrombin Time 10.8 sec (9.3-11.8) Prothrombin Time INR 1.02 (0.9-1.15) Activated Partial Thromboplast Time 30.6 SEC (24.5-34.5) Test 08/24/25 10:30 08/24/25 02:49 08/24/25 02:28 08/24/25 00:01 Phosphorus Level 3.5 mg/dL (2.4-5.1) Beta HCG, Quantitative 0.4 mIU/mL (1.5-4.2) Influenza Type A Antigen Negative (Negative) Influenza Type B Antigen Negative (Negative) SARS-CoV-2 Antigen (Rapid) Negative (NEGATIVE) Urine Color Light-yellow (Yellow) Urine Clarity Clear (Clear) Urine pH 7.0 (5.0-9.0) Urine Specific [place] > 1.050 (1.001-1.035) Urine Protein Trace (Negative) Urine Ketones Negative (Negative) Urine Blood Negative /uL (Negative) Urine Nitrite Negative (Negative) Urine Bilirubin Negative (Negative) Urine Urobilinogen Normal mg/dL (Negative) Urine Leukocyte Esterase Negative /uL (Negative) Urine RBC None seen /hpf (0 - 4) Urine Microscopic WBC 5 /HPF (0-5) Urine Squamous Epithelial Cells Few /hpf (<5) Urine Bacteria None seen /hpf (None Seen) Urine Glucose Normal mg/dL (Normal) Urine Opiates Screen Neg (NEGATIVE) Urine Fentanyl Screen Neg (NEGATIVE) Urine Barbiturates Screen Neg (NEGATIVE) Urine Phencyclidine Screen Neg (NEGATIVE) Urine Amphetamines Screen Neg (NEGATIVE) Urine Benzodiazepines Screen Neg (NEGATIVE) Urine Cocaine Screen Neg (NEGATIVE) Urine Cannabinoids Screen Neg (NEGATIVE) Lipase 30 U/L (12-53) Other Laboratory Tests 08/27/25 04:34 08/26/25 10:14 Brief Hx & Hospital Course: This is a 24-year-old female with a past medical history of focal seizures, Ignacia-Danlos, anxiety, depression, autism, asthma, recurrent abdominal hernias, fibromyalgia, scoliosis who was brought to the emergency room by her mother for nausea, vomiting, abdominal and flank pain. According to the patient she had been throwing up since May on and off but since the last 4 days 08/20/2025, the episodes of vomiting have increased and she is unable to tolerate any liquid or solids. Patient reported that she had a incarcerated, strangulated supraumbilical hernia repair in [place] on November. She also complained of coughing constantly which causes the abdominal pain. She rated the pain as 10/10 in intensity, burning and stabbing type, increased with movement, standing. She denied any shortness of breath, diarrhea, chest pain, recent sick contacts. She also complained of right-sided loin to groin pain, 10/10 in intensity, stabbing in nature associated with nausea and vomiting. Patient had gone to [facility] and was told that she had renal stone in the lower pole measuring 3 mm and was given pain medication for it. CT abdomen showed mildly incarcerated supraumbilical hernia, hepatic steatosis and a nonobstructing right nephrolith. Chest x-ray, renal ultrasound and head CT came back normal. during the course of the hospitalization, patient was clinically better and hence is being discharged. Condition at Discharge: Fair Final Diagnosis/Problems List # Incarcerated supraumbilical hernia # Right sided nephrolithiasis, nonobstructive # history of anxiety disorder # history of depression # history of asthma # history of autism # history of ehler danlos # Morbid obesity BMI 49.0 kg/M2 # hepatic steatosis probably due to MAIER # hypocalcemia Discharge Disposition: Home Discharge Instruct/Medications Diet: Regular Activity: No Restrictions, As Tolerated Follow Up/Referral: F/U with PCP in 7days F/U with surgery as outpatient Scheduled Clindamycin Hcl (Clindamycin Hcl), 1 CAP PO TID Discharge Statement: "Patient was advised to return to the ER or call 911 if any headaches, dizziness, shortness of breath, chest pain, abdominal pain, bleeding, fevers, or worsening of medical condition. Patient was counseled about treatment plan, medications, possible side effects, patientverbalized understanding. All questions were answered to the best of my ability. This discharge took greater then 30 minutes in planning, reviewing documentation, counseling the patient, and discussing with other team members." DME: Diagnosis: abdominal surgery with foot pain in Ehler Danlos syndrome, high fall risk, need Non weight bearing b/l foot. ASSESSMENT ASSESSMENT Assessment supraumbilical hernia Date of Service: Aug 27, 2025 Billing Provider: CYRUS WESLEY MD Common Visit Codes: 90812-LKG/OBS DISCH DAY >30min NICOLE GORMAN RESIDENT Aug 27, 2025 15:38 CYRUS WESLEY MD Aug 30, 2025 20:13
--- NOTE | 2025-08-30 11:26 | DVHOP ---
DATE OF SURGERY: 08/25/2025 PREOPERATIVE DIAGNOSIS: Supraumbilical hernia. POSTOPERATIVE DIAGNOSIS: Supraumbilical hernia. SURGEON: Miguel Adkins MD GENERAL HELPER: Rudy Grullon NP. ANESTHESIA: General endotracheal. ANESTHESIOLOGIST: Dr. Brooks. PROCEDURE: Repair of hernia with mesh. DESCRIPTION OF PROCEDURE: Under adequate anesthesia with the patient's skin prepped and draped, an incision was made over the visible palpable bulge in the supraumbilical abdominal wall in the midline. The incision was deepened with electrocautery. The hernia sac was encountered, which was opened and digitally explored. It contained incarcerated omentum, which was reduced. The hernia sac was excised and submitted. The edges of the hernia defect were grasped with Vladislav clamps and excised of peritoneal and fibrous tissue. Subsequently, the hernia was measured and measured approximately 7 cm in diameter. A size 6 Ventralex mesh graft was used to repair the defect, securing the Marlex with interrupted nonabsorbable sutures. Subsequently, the wound was irrigated with antibiotic solution. The graft had been previously soaked in antibiotic solution. The subcutaneous tissues were irrigated. Hemostasis was accomplished and closure coverage utilizing Monocryl sutures, Dermabond glue and Steri-Strips. The patient remained stable throughout the procedure, left the operating room following an accurate needle and sponge count. Her mother was thoroughly informed in the waiting room. MD OLEG Eller/TIMOTHY TID: [id number] RECEIPT: [id number]
== END 2025-08-27 14:33 | disposition home health service (06) | DRG 227 ==
LOC: ER 22:59 → OVERFLOW 08-24 02:26 → CENTRAL 08-24 05:30
PROVIDERS: ADMIT Internal Medicine Geriatric Medicine; ATTEND Internal Medicine Geriatric Medicine
PROC: 0WUF0JZ Supplement Abdominal Wall with Synthetic Substitute, Open Approach (ICD-10-PCS; principal; 2025-08-25 10:05)
DX: K43.0 Incisional hernia with obstruction, without gangrene (principal); E83.51 Hypocalcemia; E66.01 Morbid (severe) obesity due to excess calories; K75.81 Nonalcoholic steatohepatitis (NASH); F32.A Depression, unspecified; J45.909 Unspecified asthma, uncomplicated; Z20.822 Contact with and (suspected) exposure to COVID-19; N20.0 Calculus of kidney; F41.9 Anxiety disorder, unspecified; F84.0 Autistic disorder; Z68.42 Body mass index [BMI] 45.0-49.9, adult; Z79.899 Other long term (current) drug therapy; Z88.0 Allergy status to penicillin; Z88.1 Allergy status to other antibiotic agents; Z88.8 Allergy status to other drugs, medicaments and biological substances; Z88.5 Allergy status to narcotic agent; Z90.49 Acquired absence of other specified parts of digestive tract; Z83.3 Family history of diabetes mellitus; Z82.5 Family history of asthma and other chronic lower respiratory diseases; Z81.8 Family history of other mental and behavioral disorders
CPT/HCPCS: 36415; 70450; 71045; 74177; 76775; 80053; 80307; 81001; 82550; 83605; 83690; 83735; 84100; 84146; 84702; 85014; 85018; 85025; 85610; 85730; 86850; 86900; 86901; 87426; 87804; 93005; 94640; 96365; 96366; 96372; 96375; 97116; 97163; 97530; G0378; J0131; J0330; J0690; J1885; J1956; J2405; J2470; J2704; J3490

== ENCOUNTER 2025-08-30 17:21 | Emergency (ER) | payer MEDICAID ==
[~2025-08-30] VITALS: Ht 149.9 cm; Wt 103.7 kg
[2025-08-30] MEDS ORDERED: CLIN1CAP70 PO (18:39)
--- NOTE | 2025-08-30 18:40 | ED.PDOC ---
History of Present Illness HPI Comments 24-year-old female complaining of blisters with her abdomen. States she had hernia repair done last week Saturday. She has not have appointment with general surgeon until September 07. She started developing two small blisters on the top portion of her abdomen that the top of the sutures. No fevers no ch ills. Nothing makes it better, nothing makes worse. Chief Complaint: Wound Check Time Seen by MD: 18:23 Reviewed Notes: Nurses Notes Allergies: Coded Allergies: Amoxicillin (Verified Allergy, Unknown, 08/23/25) Azithromycin (Verified Allergy, Unknown, 08/23/25) Dexamethasone (Verified Allergy, Unknown, 08/23/25) Diphenhydramine (Verified Allergy, Unknown, 08/23/25) Doxycycline (Verified Allergy, Unknown, 08/23/25) Gabapentin (Verified Allergy, Unknown, 08/23/25) Morphine (Verified Allergy, Unknown, 08/23/25) Oxycodone (Verified Allergy, Unknown, 08/23/25) Prochlorperazine (Verified Allergy, Unknown, 08/23/25) Home Meds No Active Prescriptions or Reported Meds Information Source: Patient Mode of Arrival: Wheelchair Past Medical History PAST MEDICAL HISTORY: Denies Surgical History: Denies all surgeries [employer]SULTANT History: No Pertinent [employer]ANT History Constitutional: denies: chills, diaphoresis, fatigue, fever, malaise, sweats, weakness, others EENTM: denies: blurred vision, double vision, ear bleeding, ear discharge, ear drainage, ear pain, ear ringing, eye pain, eye redness, hearing loss, mouth pain, mouth swelling, nasal discharge, nose bleeding, nose congestion, nose pain, photophobia, tearing, throat pain, throat swelling, voice changes, others Respiratory: denies: cough, hemoptysis, orthopnea, SOB at rest, shortness of breath, SOB with excertion, stridor, wheezing, others Cardiovascular: denies: chest pain, dizzy spells, diaphoresis, Dyspnea on exertion, edema, irregular heart beat, left arm pain, lightheadedness, palpitati ons, PND, syncope, others Gastrointestinal: denies: abdomen distended, abdominal pain, blood streaked bowels, constipated, diarrhea, dysphagia, difficulty swallowing, hematemesis, melena, nausea, poor appetite, poor fluid intake, rectal bleeding, rectal pain, vomiting, others Genitourinary: denies: abnormal vagina bleeding, burning, dyspareunia, dysuria, flank pain, frequency, hematuria, incontinence, pain, , vagina discharge, urgency, others Neurological: denies: dizziness, fainting, headache, left sided numbness, left sided weakness, numbness, paresthesia, pre-existing deficit, right sided numbness, right sided weakness, seizure, speech problems, tingling, tremors, weakness, others Musculoskeletal: denies: back pain, gout, joint pain, joint swelling, muscle pain, muscle stiffness, neck pain, others Integumetry: reports: wounds Physical Exam General Appearance: No Apparent Distress, Normal HEENT: Normal ENT Inspection, Pharynx Normal, TMs Normal Neck: Full Range of Motion, Non-Tender, Normal, Normal Inspection Respiratory: Chest Non-Tender, Lungs Clear, No Accessory Muscle Use, No Respiratory Distress, Normal Breath Sounds Cardiovascular: No Edema, No JVD, No Murmur, No Gallop, Normal Peripheral Pulses, Regular Rate/Rhythm Breast Exam: Deferred Gastrointestinal: No Organomegaly, Non Tender, No Pulsatile Mass, Normal Bowel Sounds, Soft Genitalia: Deferred Pelvic: Deferred Rectal: Deferred Extremities: No calf tenderness, Normal capillary refill, Normal inspection, Normal range of motion, Non-tender, No pedal edema Musculoskeletal : Apperance: Normal Neurologic: Alert, applicator sprayer II-XII nml as Tested, No Motor Deficits, Normal Affect, Normal Mood, No Sensory Deficits Cerebellar Function: Normal Reflexes: Normal Skin: Dry, Normal Color, Warm, Other (Two blisters noted in the center of the abdomen superior to this suture line. This is are intact.) Lymphatic: No Adenopathy Was a procedure done? Was a procedure done?: No Differential Dx Considerations may include: Cellulitis, wound dehiscence, postsurgical complications X-Ray, Labs, Meds, VS Vital Signs Date Time Temp Pulse Resp B/P (MAP) Pulse Ox O2 Delivery O2 Flow Rate FiO2 08/30/25 17:23 97.5 102 19 102/67 96 97.5 X-Ray, Labs, Meds, VS Comment Imaging was reviewed by this provider, there is no obvious pathological or acute disease process. Pending radiology review Labs were reviewed by this provider, no abnormalities Vital signs reviewed by this provider, clinically stable Time of 1ST Reevaluation: 18:40 Reevaluation 1ST: Improved Patient Education/Counseling: Diagnosis, Treatment, Need For Follow Up (Follow up with PCP next available appointment.) Family Education/Counseling: Diagnosis SEPSIS Sepsis Screen Date sepsis recognized/suspect: Aug 30, 2025 Time Sepsis recognized/suspect: 1723 Recent Procedure: No On Antibiotic Therapy: No Respiratory Rate >20: No Heart Rate >90: Yes Temp<36 C (96.8 F) or >38.3 C: No SBP <90 or MAP <65 mmHG: No New Acute Mental Status Change: No Is the patient on CPAP, BIPAP,: No Vital Signs Date Time Temp Pulse Resp B/P (MAP) Pulse Ox O2 Delivery O2 Flow Rate FiO2 08/30/25 17:23 97.5 102 19 102/67 96 97.5 Departure 1 Departure Time of Disposition: 18:38 Impression: Primary Impression: Blister (nonthermal) of abdominal wall, initial encounter Disposition: HOME / SELF CARE / HOMELESS Condition: Stable e-Prescriptions Clindamycin Hcl (Clindamycin Hcl) 300 Mg Cap 1 CAP PO TID for 7 Days, #21 CAP Prov: ROMINA CURRY 08/30/25 Discharged With: Self Critical Care Note Critical Care Time?: No Stability Stability form required: No Heart Score Heart Score: Heart Score Response (Comments) Value History N/A 0 EKG N/A 0 Age N/A 0 Risk Factors N/A 0 Troponin N/A 0 Total 0 ROMINA CURRY Aug 30, 2025 18:40
[2025-08-30 18:51] VITALS: BP 113/72; PULSE 89; RESP 20; TEMP 97; O2SAT 98
== END 2025-08-30 18:53 | disposition home or self-care (01) ==
LOC: ER 17:24
DX: S30.821A Blister (nonthermal) of abdominal wall, initial encounter (principal); Z88.5 Allergy status to narcotic agent; Z88.1 Allergy status to other antibiotic agents; Z88.0 Allergy status to penicillin; X58.XXXA Exposure to other specified factors, initial encounter; Y93.89 Activity, other specified; Y92.89 Other specified places as the place of occurrence of the external cause; Y99.8 Other external cause status